=== PATIENT | female | born 1945 | race Caucasian/White ===

== ENCOUNTER 2018-07-16 12:28 | Outpatient (CLI) | payer MEDICARE, SELFPAY ==
[2018-07-18 04:34] LABS: Vitamin D 25 Total 39.6 ng/ml (30-100)
== END 2018-07-16 12:48 ==
PROVIDERS: PCP Family Medicine; Visit Provider Family Medicine
DX: C34.32 Malignant neoplasm of lower lobe, left bronchus or lung (principal); E03.2 Hypothyroidism due to medicaments and other exogenous substances; M81.8 Other osteoporosis without current pathological fracture
CPT/HCPCS: 36415; 82306

== ENCOUNTER 2018-07-22 07:41 | Day surgery (SDC) | payer MEDICARE, OTHER, SELFPAY ==
--- NOTE | 2018-07-21 12:48 | W.PIPPEYE ---
History of Present Illness Chief Complaint: Progressive decreased vision, left eye Narrative: The patient is a 72 year old lady who originally presented with complaints of progressive decreased vision in both eyes at both distance and near, right eye worse than left. She was noted to have significant bilateral nuclear and cortical cataracts, right eye worse than left. The option of cataract surgery was offered to the patient and she wished to proceed. She underwent cataract surgery in the right eye on 07/08/2018. Postoperatively she is doing well in the right eye with 20/20 uncorrected vision. She now presents for cataract surgery in the left eye. NOTE: The Chief Complaint, HPI, Past Medical History, Past Surgical History, Family History, Social History, Medications, and complete Ophthalmic Exam with detailed Assessment and Plan have already been documented in the patient's outpatient ophthalmic record and/or in the Primary Care Provider's pre-op history and physical, and are not covered again in detail here. [facility] Family History Mother Dementia Mental disorder Father Personal history of malignant neoplasm Cerebrovascular accident Parkinson disease Sister Essential hypertension Personal history of malignant neoplasm Brother No problems noted. Grandfather Parkinson disease Grandfather No problems noted. Grandmother Diabetes Grandmother No problems noted. Other Heart disease Medical History Cortical cataract of left eye (Chronic) Nuclear sclerotic cataract of left eye (Chronic) Social History Smoking/Tobacco Use Status: Never Surgical History S/P cataract surgery (Resolved 07/08/18) Dilation and curettage LAMINECTOMY Open Carpal Tunnel release (01/13/15) Rotator Cuff Repair Tonsillectomy and adenoidectomy Meds Home Medications Medication Instructions Recorded Confirmed Type calcium carbonate-vitamin D3 1 ea PO DAILY #90 tab 03/25/13 07/08/18 History [Caltrate with Vitamin D3] ibuprofen 800 mg PO TID pprn #100 tab-cap 03/02/17 07/08/18 Clinic triamcinolone acetonide 1 lane TOPICAL BID PRN #3 ea 08/16/17 07/08/18 Clinic paroxetine HCl 2 tab PO DAILY #60 tab-cap 11/09/17 07/08/18 Clinic alprazolam 1 mg PO DAILY PRN #6 tab-cap 03/01/18 07/08/18 Clinic famotidine 20 mg PO BID #60 tab-cap 03/07/18 07/08/18 Clinic alprazolam 0.5 mg PO QAM #30 tab-cap 06/28/18 07/08/18 Clinic Ca Seu-M2-V-Ccrc-fvlgs-gdh bor 1 ea PO DAILY 07/03/18 07/08/18 History [Prosteon Tablet] Zyflanemd 1 tab PO BID 07/03/18 07/08/18 History ascorbic acid (vitamin C) [Vitamin 500 mg PO DAILY 07/03/18 07/08/18 History C] cholecalciferol (vitamin D3) 2,000 unit PO DAILY 07/03/18 07/08/18 History [Vitamin D3] cod liver oil 1 ea PO DAILY 07/03/18 07/08/18 History wmepiofo-ykess-way9-C-jaci-bor 1 ea PO TID 07/03/18 07/08/18 History [Cddqidr-Zxsbr-KDZ Complex Cplt] milk thistle seed extract 175 mg PO DAILY 07/03/18 07/08/18 History multivitamin 1 ea PO BID 07/03/18 07/08/18 History vitamin B complex 1 ea PO DAILY 07/03/18 07/08/18 History Allergies Allergy/AdvReac Type Severity Reaction Status Date / Time latex Allergy Unknown red & itchy Unverified 07/08/18 08:01 acetaminophen [From Percocet] AdvReac Intermediate Unverified 07/08/18 08:01 morphine AdvReac Intermediate Paranoia Unverified 07/08/18 08:01 oxycodone [From Percocet] AdvReac Intermediate Unverified 07/08/18 08:01 Sulfa (Sulfonamide AdvReac Intermediate NAUSEA AND Unverified 07/03/18 10:16 Antibiotics) VOMITING Exam OCULAR EXAM:: Visual acuity at distance: 20/20 OD, 20/30 OS Pupils: Pupils equal, round, and reactive without afferent pupillary defect IOP: 15 OD 18 OS Extraocular Motility: Normal Pertinent Slit Lamp Findings: Significant for a well-positioned PCIOL OD. 1+ nuclear/cortical cataract, left eye. Pupils dilate to 7 mm OU. Dilated Funduscopic Examination: Disc cupping is 0.35 OD, 0.3 OS. The optic nerves have good perfusion and normal color. The retinal vasculature is normal without significant tortuosity or abnormality. The maculas are normal in appearance with normal contour and foveal reflex appropriate for age. The peripheral retina and vitreous are normal. BRIGHTNESS ACUITY TESTING (BAT):: Off left eye 20/30 Low: 20/50 Medium: 20/60 High: 20/70 Assessment and Plan (1) Nuclear sclerotic cataract of left eye: Current visit: No Status: Chronic Assessment: Visually significant cataract, left eye. Plan: Cataract extraction with intraocular lens implantation, left eye (2) Cortical cataract of left eye: Current visit: No Status: Chronic Assessment: Visually significant cataract, left eye. Plan: Cataract extraction with intraocular lens implantation, left eye Note: NOTE:: The details of the planned surgery, including the risks, indications,limitations,expectations,outcome and possible complications were explained to the patient. The patient understands the complications including, but not limited to: infection, hemorrhage, posterior dislocation of the lens or nuclear fragments which may require the intervention of a vitreoretinal surgeon, possible loss of the eye, or from anesthetic complications. The patient has been made aware of the option of not having surgery, that vision following surgery may not be equal to that prior to surgery, and that the planned surgery may not achieve the intended results. Following this discussion, which the patient appeared to understand, the patient wishes to proceed with cataract surgery with lens implantation of the affected eye to improve and maximize vision.
--- NOTE | 2018-07-21 13:00 | POEE_ITS ---
History of Present Illness Chief Complaint: Progressive decreased vision, left eye Narrative: The patient is a 72 year old lady who originally presented with complaints of progressive decreased vision in both eyes at both distance and near, right eye worse than left. She was noted to have significant bilateral nuclear and cortical cataracts, right eye worse than left. The option of cataract surgery was offered to the patient and she wished to proceed. She underwent cataract surgery in the right eye on 07/08/2018. Postoperatively she is doing well in the right eye with 20/20 uncorrected vision. She now presents for cataract surgery in the left eye. NOTE: The Chief Complaint, HPI, Past Medical History, Past Surgical History, Family History, Social History, Medications, and complete Ophthalmic Exam with detailed Assessment and Plan have already been documented in the patient's outpatient ophthalmic record and/or in the Primary Care Provider's pre-op history and physical, and are not covered again in detail here. [facility] Family History Mother Dementia Mental disorder Father Personal history of malignant neoplasm Cerebrovascular accident Parkinson disease Sister Essential hypertension Personal history of malignant neoplasm Brother No problems noted. Grandfather Parkinson disease Grandfather No problems noted. Grandmother Diabetes Grandmother No problems noted. Other Heart disease Medical History Cortical cataract of left eye (Chronic) Nuclear sclerotic cataract of left eye (Chronic) Social History Smoking/Tobacco Use Status: Never Surgical History S/P cataract surgery (Resolved 07/08/18) Dilation and curettage LAMINECTOMY Open Carpal Tunnel release (01/13/15) Rotator Cuff Repair Tonsillectomy and adenoidectomy Meds Home Medications Medication Instructions Recorded Confirmed Type calcium carbonate-vitamin D3 1 ea PO DAILY #90 tab 03/25/13 07/08/18 History [Caltrate with Vitamin D3] ibuprofen 800 mg PO TID pprn #100 tab-cap 03/02/17 07/08/18 Clinic triamcinolone acetonide 1 lane TOPICAL BID PRN #3 ea 08/16/17 07/08/18 Clinic paroxetine HCl 2 tab PO DAILY #60 tab-cap 11/09/17 07/08/18 Clinic alprazolam 1 mg PO DAILY PRN #6 tab-cap 03/01/18 07/08/18 Clinic famotidine 20 mg PO BID #60 tab-cap 03/07/18 07/08/18 Clinic alprazolam 0.5 mg PO QAM #30 tab-cap 06/28/18 07/08/18 Clinic Ca Bzo-P2-H-Sylr-nygcr-yql bor 1 ea PO DAILY 07/03/18 07/08/18 History [Prosteon Tablet] Zyflanemd 1 tab PO BID 07/03/18 07/08/18 History ascorbic acid (vitamin C) [Vitamin 500 mg PO DAILY 07/03/18 07/08/18 History C] cholecalciferol (vitamin D3) 2,000 unit PO DAILY 07/03/18 07/08/18 History [Vitamin D3] cod liver oil 1 ea PO DAILY 07/03/18 07/08/18 History tushhlju-sedto-cjy1-C-jaci-bor 1 ea PO TID 07/03/18 07/08/18 History [Bjtotsn-Hjwaf-PYW Complex Cplt] milk thistle seed extract 175 mg PO DAILY 07/03/18 07/08/18 History multivitamin 1 ea PO BID 07/03/18 07/08/18 History vitamin B complex 1 ea PO DAILY 07/03/18 07/08/18 History Allergies Allergy/AdvReac Type Severity Reaction Status Date / Time latex Allergy Unknown red & itchy Unverified 07/08/18 08:01 acetaminophen [From Percocet] AdvReac Intermediate Unverified 07/08/18 08:01 morphine AdvReac Intermediate Paranoia Unverified 07/08/18 08:01 oxycodone [From Percocet] AdvReac Intermediate Unverified 07/08/18 08:01 Sulfa (Sulfonamide AdvReac Intermediate NAUSEA AND Unverified 07/03/18 10:16 Antibiotics) VOMITING Exam OCULAR EXAM:: Visual acuity at distance: 20/20 OD, 20/30 OS Pupils: Pupils equal, round, and reactive without afferent pupillary defect IOP: 15 OD 18 OS Extraocular Motility: Normal Pertinent Slit Lamp Findings: Significant for a well-positioned PCIOL OD. 1+ nuclear/cortical cataract, left eye. Pupils dilate to 7 mm OU. Dilated Funduscopic Examination: Disc cupping is 0.35 OD, 0.3 OS. The optic nerves have good perfusion and normal color. The retinal vasculature is normal without significant tortuosity or abnormality. The maculas are normal in appearance with normal contour and foveal reflex appropriate for age. The peripheral retina and vitreous are normal. BRIGHTNESS ACUITY TESTING (BAT):: Off left eye 20/30 Low: 20/50 Medium: 20/60 High: 20/70 Assessment and Plan (1) Nuclear sclerotic cataract of left eye: Current visit: No Status: Chronic Assessment: Visually significant cataract, left eye. Plan: Cataract extraction with intraocular lens implantation, left eye (2) Cortical cataract of left eye: Current visit: No Status: Chronic Assessment: Visually significant cataract, left eye. Plan: Cataract extraction with intraocular lens implantation, left eye Note: NOTE:: The details of the planned surgery, including the risks, indications, limitations,expectations,outcome and possible complications were explained to the patient. The patient understands the complications including, but not limited to: infection, hemorrhage, posterior dislocation of the lens or nuclear fragments which may require the intervention of a vitreoretinal surgeon, possible loss of the eye, or from anesthetic complications. The patient has been made aware of the option of not having surgery, that vision following surgery may not be equal to that prior to surgery, and that the planned surgery may not achieve the intended results. Following this discussion, which the patient appeared to understand, the patient wishes to proceed with cataract surgery with lens implantation of the affected eye to improve and maximize vision.
[2018-07-22 07:49] VITALS: BP 134/85; PULSE 71; RESP 16; TEMP 36.3; O2SAT 98
[2018-07-22] MEDS: Balanced Salt Soln.-PLUS 500 ML BAG (09:57)
[2018-07-22] MEDS: Lidocaine 1% Pres-Free 5 ML VIAL (09:58)
[2018-07-22] MEDS: Lidocaine 2% Jelly 6 ML SYR (09:59)
[2018-07-22] MEDS: Povidone-Iodine Ophth 30 ML BTL (10:16)
--- NOTE | 2018-07-22 10:21 | W.PM.DSUDISC ---
Discharge Plan Discharge Details Attending Provider: Julián Schmitt Primary Care Provider: Flavio Oswald. Home Meds and New Rx's Prescriptions: No Action calcium carbonate-vitamin D3 [Caltrate with Vitamin D3] 1 EACH tablet 1 ea PO DAILY Qty: 90 RF: 4 ibuprofen 800 MG tablet 800 mg PO TID pprn Qty: 100 RF: 4 triamcinolone acetonide [address] Topical BID PRNQty: 3 RF: 4 paroxetine HCl 40 MG tablet 2 tab PO DAILY Qty: 60 RF: 11 alprazolam 1 MG tablet 1 mg PO DAILY PRNQty: 6 RF: 0 famotidine 20 MG tablet 20 mg PO BID Qty: 60 RF: 11 alprazolam 0.5 MG tablet extended release 24 hr 0.5 mg PO QAM Qty: 30 RF: 5 cod liver oil 1 EACH capsule 1 ea PO DAILY RF: 0 ascorbic acid (vitamin C) [Vitamin C] 500 MG tablet 500 mg PO DAILY RF: 0 multivitamin 1 EACH capsule 1 ea PO BID RF: 0 vitamin B complex 1 EACH capsule 1 ea PO DAILY RF: 0 cholecalciferol (vitamin D3) [Vitamin D3] 2,000 UNIT capsule 2,000 unit PO DAILY RF: 0 mrstdpnb-yjajv-uif7-C-jaci-bor [Ckgbnbmtjkg-Ekzxh-ZXQ Complex] 1 EACH tablet 1 ea PO TID RF: 0 Ca Jze-G3-M-Qgkn-vfumk-qey bor [Prosteon] 1 EACH tablet 1 ea PO DAILY RF: 0 milk thistle seed extract 175 MG capsule 175 mg PO DAILY RF: 0 Zyflanemd 1 tab PO BID RF: 0 Discharge Instructions Stand Alone Forms: Post-op Topical Cataract, Yordy Kumariey (DSU) DS: Diagnosis Discharge Diagnosis (1) Nuclear sclerotic cataract of left eye: Status: Resolved (2) Cortical cataract of left eye: Status: Resolved
--- NOTE | 2018-07-22 10:22 | ROE_ITS ---
Date of service: 07/22/18 Time of Service: 10:21 Operative Note Date of procedure: 07/22/18 Pre-op diagnosis: Cataract, left eye Post-op diagnosis: same Procedure: Cataract extraction using phacoemulsification with intraocular lens implant, left eye Surgeon: Julián Schmitt Anesthesia: MAC and local (sub-tenon's anesthetic infiltration) Pathology: none sent Complications: None Patient was transported to: same day Patient's condition: stable Implants: [employer] / [employer] Tecnis [id number] Indications: Painless progressive vision loss due to cataract, left eye Procedure Description: CATARACT SURGERY OPERATIVE REPORT PREOPERATIVE DIAGNOSIS: Nuclear/cortical cataract, left eye, symptomatic POSTOPERATIVE DIAGNOSIS: Same OPERATION: Cataract extraction using phacoemulsification with posterior chamber intraocular lens implant, left eye. IOL: IOL Senior Lead Developer/Model: [employer] & Chuck[employer] / GHASSAN Tecnis [id number] IOL Power: +23.50 diopters IOL Serial Number: [id number] Optic Diameter: 6.0 mm Haptic/Overall Diameter: 13.0 mm PHACO INFO: [employer] Vision System with OZil and Active [employer]uidics Cumulative Dispersed Energy (CDE): 10.62 seconds SURGEON: Julián Schmitt MD, VALERI ANESTHESIA: Monitored Anesthesia Care (MAC), with local sub-tenon's anesthetic infiltration COMPLICATIONS: None SPECIMENS: None INDICATIONS FOR PROCEDURE: The patient is a 72-year-old lady with history of symptomatic bilateral nuclear and cortical cataracts, right eye worse than left. She is Ardie undergone cataract surgery in her right eye and is doing well postoperatively with uncorrected vision of 20/20. She now presents for cataract surgery in the left eye. PROCEDURE: The correct surgical eye was identified and marked as the left eye and the pupil was dilated in the preoperative area using mydriatics, cycloplegics, and NSAIDS (except in aspirin allergic patients). The dilated pupil size was 7.0 mm. Oral sedation was administered in the form of an Imprimis MKO Melt (midazolam 3mg/ketamine 25mg/ondansetron 2mg). The patient was brought to the operating room where cardiopulmonary monitoring was instituted and surgical time-out was performed, confirming the correct operative eye and IOL power. Topical anesthesia was administered and ophthalmic povidone-iodine 5% was instilled into the conjunctival fornices. Lidocaine gel was applied to the cornea and the domenica-ocular area was prepped with Betadine 10% solution and draped in the usual sterile fashion for intraocular surgery. Steri-strips were used to cover the lashes and lid margins and an adhesive eye drape was placed. Care was taken to isolate the lashes and lid margins under the Steri-strips and adhesive eye drape. A lid speculum was placed between the lids of the operative eye and the Opal-Stoney operating microscope was maneuvered into position. Jim scissors were then used to make a conjunctival buttonhole approximately 6mm posterior to the limbus in the inferonasal quadrant. Blunt dissection was carried out to expose bare sclera, and a blunt-tipped sub-tenon? s anesthesia cannula was introduced and passed posteriorly along the globe where non-preserved plain lidocaine was injected into posterior sub-Tenon?s space. A sideport knife was used to make a paracentesis port at the 12:00 postion and the anterior chamber was filled with Healon GV. A 2.4mm keratome knife was used to create a half-thickness groove at the limbus and then to construct a three-plane near-clear corneal tunnel extending 2.0mm into clear cornea at the 3:00 position. A flap was raised on the anterior capsule and capsulorhexis forceps were used to complete a continuous curvilinear capsulorhexis of 5.0mm, slightly irregular superiorly. Balanced salt solution was then used to perform cortical cleaving hydrodissection and nuclear hydrodelineation until the lens could be freely rotated within the capsular bag. The lens nucleus was then disassembled and removed within the capsular bag and iris plane using phacoemulsification. Residual cortical material was removed using the 45-degree angled silicone I/A tip with 0.3mm port. The posterior capsule was carefully polished to remove as much residual lens epithelial cells as safely possible. The capsular bag was then inflated and the anterior chamber deepened with viscoelastic. The lens implant described above was inserted into the capsular bag using the GHASSAN [place] Injector. A Kuglen hook was used to dial the IOL into position. Residual viscoelastic was then removed first from posterior to the IOL, then from the anterior chamber using the I/A handpiece. The lens implant was noted to center nicely within the capsular bag. The incisions were stromally hydrated , and the anterior chamber was reformed using BSS. Then 0.4cc of moxifloxacin 1.5mg/ml were injected into the capsular bag and anterior chamber. The incisions were checked with a Weck spear and found to be secure. Several drops of ophthalmic povidone-iodine 5% were then applied to the eye followed by two drops of Imprimis combination moxifloxacin/dexamethasone solution. The drapes were removed and a clear plastic protective eye shield was placed over the eye. The patient was then returned to [facility] Surgery in stable condition.
[2018-07-22 10:45] VITALS: BP 132/76; PULSE 68; RESP 16; TEMP 36.8; O2SAT 95
== END 2018-07-22 10:50 | disposition home or self-care (01) ==
LOC: SUR 07:43
PROVIDERS: PCP Family Medicine; Visit Provider Ophthalmology
PROC: (CPT 66984; principal; 2018-07-22 10:30)
DX: H25.12 Age-related nuclear cataract, left eye (principal); H25.012 Cortical age-related cataract, left eye; I10 Essential (primary) hypertension
CPT/HCPCS: 66984; V2632

== ENCOUNTER 2019-02-24 18:05 | Outpatient (REF) | payer MEDICARE, SELFPAY ==
--- NOTE | 2019-02-24 15:50 | SKI_PTH ---
PATIENT: Suma Heck LOC: [facility] U#:[id number] AGE/SX: 73/F ROOM: RE02/24/[address]: Hira Finley DO : 1945 BED: DIS: 02/24/2019 SPEC #: [id number] RECD: 02/24/19 18:09 STATUS: JACK RETorin #: [id number] HARJINDER: 02/24/19 15:[address]: Hira Finley DEPT: Surgical Specimen RECD BY: Lynda Bansal ENTERED: 02/24/19 18:10 SP TYPE: JACIEL SORIANO DR: Flavio Oswald MD Tissues: 1 - SKIN BIOPSY(SHAVE/PUNCH) 2 - SKIN BIOPSY(SHAVE/PUNCH) Procedures: SKIN LEVEL 4 Comments: [id number]
== END 2019-02-24 18:25 ==
LOC: LBN 18:05
PROVIDERS: PCP Family Medicine; Visit Provider Otolaryngology Otolaryngology/Facial Plastic Surgery
DX: L81.4 Other melanin hyperpigmentation (principal); L82.1 Other seborrheic keratosis
CPT/HCPCS: 88305

== ENCOUNTER 2019-04-21 13:38 | Outpatient (CLI) | payer MEDICARE, OTHER, SELFPAY ==
--- NOTE | 2019-04-21 13:35 | DI.RAD_ITS ---
SYMPTOM/DIAGNOSIS: RT HIP PAIN RIGHT HIP: Two views. Comparison 03/18/14. The right hip is well maintained. No bone or joint abnormality is identified. Dystrophic stable calcifications are seen in the soft tissues adjacent to the lesser trochanter. The soft tissues are otherwise unremarkable. IMPRESSION: No acute abnormality.
== END 2019-04-21 13:58 ==
PROVIDERS: PCP Family Medicine; Referring Provider Family Medicine; Visit Provider Student in an Organized Health Care Education/Training Program
DX: M25.551 Pain in right hip (principal); M70.61 Trochanteric bursitis, right hip; I10 Essential (primary) hypertension
CPT/HCPCS: 20610; 99204; 99213; 73502; J1040

== ENCOUNTER 2019-06-21 10:38 | Outpatient (CLI) | payer MEDICARE, SELFPAY ==
[2019-06-21 12:07] LABS: Anion Gap 8.9 mmol/L (3-11); BUN 16 mg/dL (7-18); CO2 29.1 mmol/L (21.0-32.0); CREATININE 0.64 mg/dL (0.55-1.02); Calculated LDL 119 mg/dL; Chloride 102 mmol/L (98-107); Cholesterol 223 mg/dL (50-200); Glucose 95 mg/dL (70-100); HDL Cholesterol 99 mg/dL (40-60); Potassium 4.3 mmol/L (3.5-5.1); Sodium 140 mmol/L (136-145); TSH (W/Ref FT4) 1.96 uIU/mL (0.36-3.74); Triglyceride 27 mg/dL (30-150)
[2019-06-21 12:36] LABS: Calcium 9.1 mg/dL (8.5-10.1)
== END 2019-06-21 10:58 ==
PROVIDERS: PCP Family Medicine; Visit Provider Family Medicine
DX: I10 Essential (primary) hypertension (principal); E03.9 Hypothyroidism, unspecified
CPT/HCPCS: 36415; 80048; 80061; 83721; 84443

== ENCOUNTER → 2019-07-09 10:05 | Outpatient (BNVA) | payer MEDICARE, SELFPAY | PROVIDERS: PCP Family Medicine; Referring Provider Family Medicine; Visit Provider Psychiatry & Neurology Neurology | DX: G62.9 Polyneuropathy, unspecified (principal); I10 Essential (primary) hypertension | CPT/HCPCS: 99205; 99215 ==

== ENCOUNTER 2019-07-09 11:20 | Outpatient (CLI) | payer MEDICARE, SELFPAY ==
[2019-07-09 12:42] LABS: HGB 13.9 g/dL (12.0-15.5); Mean Corp. HGB Concentration 33.9 g/dL (32.0-36.0); Mean Corpuscular Hemoglobin 30.7 pg (27.0-33.0); Mean Corpuscular Volume 90.5 fL (80-95); Platelet Count 226 x1000/uL (130-400); RBC 4.53 m/cumm (4.00-5.20); White Blood Cell Count 5.08 k/cumm (4.4-10.8)
[2019-07-09 13:02] LABS: Hemoglobin A1C 5.7 % (4.5-6.2)
[2019-07-09 13:37] LABS: Folate 17.4 ng/mL (8.6-20.0); Vitamin B12 871 pg/mL (193-986)
[2019-07-10 13:34] LABS: Albumin 64.5 % (55.8-66.1); Total Protein 7.5 g/dl (6.3-8.2)
== END 2019-07-09 11:40 ==
PROVIDERS: PCP Family Medicine; Visit Provider Psychiatry & Neurology Neurology
DX: G62.9 Polyneuropathy, unspecified (principal); Z79.899 Other long term (current) drug therapy
CPT/HCPCS: 36415; 85027; 99215; 82607; 82746; 83036; 84165

== ENCOUNTER 2020-09-06 10:07 | Outpatient (CLI) | payer MEDICARE, SELFPAY ==
--- NOTE | 2020-09-06 15:30 | DI.RAD_ITS ---
EXAM: XR KNEE RT 4V AP,LAT,MATIAS,PAT CLINICAL HISTORY: fall, knee pain m25.569 pain in rt knee TECHNIQUE: COMPARISON: No exams were available for comparison FINDINGS: Four views were obtained. There is a probable knee joint effusion. There is slight deformity of the lateral tibial plateau, this may be on a degenerative basis, however the possibility of an occult no ndisplaced tibial plateau fracture would have to be raised. Additional evaluation with CT of the kne e is suggested. IMPRESSION: RADIATION DOSE DELIVERED: Total DLP
== END 2020-09-06 10:27 ==
PROVIDERS: PCP Family Medicine; Visit Provider Physician Assistant
DX: M25.561 Pain in right knee (principal)
CPT/HCPCS: 73564

== ENCOUNTER 2020-09-08 09:15 | Outpatient (CLI) | payer MEDICARE, SELFPAY ==
--- NOTE | 2020-09-08 13:45 | DI.CT_ITS ---
EXAM: CT LOWER EXTREMITY RT WO CLINICAL HISTORY: r/o tibial plateau fracture; recent xray ? fx. M25.569 PAIN IN KNEE TECHNIQUE: COMPARISON: CR XR KNEE RT 4V AP,LAT,MATIAS,PAT from 09/06/2020 FINDINGS: CT examination of the knee was performed to evaluate questionable findings involving lateral tibial p lateau on recent radiographs. There is a moderate knee joint effusion. There is a mildly displaced fracture of the posterior lateral aspect of the lateral tibial plateau, t he area involved measures about 14 x 24 millimeters in diameter with 2-3 millimeter depression of gloria n fracture fragment. There is slight comminution. This is a mildly impacted fracture. No additiona l fracture identified. IMPRESSION: Mildly depressed lateral tibial plateau fracture posteriorly as described above. RADIATION DOSE DELIVERED: 298.32mGy.cm Total DLP
== END 2020-09-08 09:35 ==
PROVIDERS: PCP Family Medicine; Visit Provider Physician Assistant
DX: S82.141A Displaced bicondylar fracture of right tibia, initial encounter for closed fracture (principal); S82.121A Displaced fracture of lateral condyle of right tibia, initial encounter for closed fracture; W51.XXXA Accidental striking against or bumped into by another person, initial encounter; I10 Essential (primary) hypertension
CPT/HCPCS: 99214; 73700

== ENCOUNTER 2020-09-23 15:06 | Outpatient (CLI) | payer MEDICARE, SELFPAY ==
--- NOTE | 2020-09-23 14:30 | DI.RAD_ITS ---
EXAM: XR KNEE RT 2V AP,LAT CLINICAL HISTORY: f/u R tibial plateau frx. TECHNIQUE: 2D digital imaging was performed. COMPARISON: CR XR KNEE RT 4V AP,LAT,MATIAS,PAT from 09/06/2020 FINDINGS: BONES: There is a persistent deformity involving the lateral tibial plateau suspicious for depressed tibial plateau fracture. No bony destructive lesion is seen. JOINTS: The knee is normally aligned. No joint effusion is seen. SOFT TISSUE: Normal. IMPRESSION: Findings are again seen suspicious for mildly depressed lateral tibial plateau fracture. DATA REPOSITORY: RADIATION DOSE DELIVERED:
== END 2020-09-23 15:26 ==
PROVIDERS: PCP Family Medicine; Referring Provider Family Medicine; Visit Provider Student in an Organized Health Care Education/Training Program
DX: S82.141A Displaced bicondylar fracture of right tibia, initial encounter for closed fracture (principal); S82.121D Displaced fracture of lateral condyle of right tibia, subsequent encounter for closed fracture with routine healing; X58.XXXD Exposure to other specified factors, subsequent encounter; I10 Essential (primary) hypertension
CPT/HCPCS: 99213; 73560

== ENCOUNTER 2020-10-21 08:45 | Outpatient (REF) | payer MEDICARE, SELFPAY ==
[2020-10-22 11:15] LABS: Campylobacter PCR Negative (Negative); Salmonella PCR Negative (Negative); Shiga Toxin PCR Negative (Negative); Shigella/Enteroinvasive Ecoli Negative (Negative)
== END 2020-10-21 09:05 ==
LOC: LBN 08:45
PROVIDERS: PCP Family Medicine; Visit Provider Family Medicine
DX: R19.7 Diarrhea, unspecified (principal)
CPT/HCPCS: 87493; 87505

== ENCOUNTER → 2020-10-21 10:12 | Outpatient (BNVA) | payer MEDICARE, SELFPAY | PROVIDERS: PCP Family Medicine; Referring Provider Family Medicine; Visit Provider Physician Assistant | DX: S82.121D Displaced fracture of lateral condyle of right tibia, subsequent encounter for closed fracture with routine healing; X58.XXXD Exposure to other specified factors, subsequent encounter | CPT/HCPCS: 99213 ==

== ENCOUNTER 2020-10-21 11:08 | Outpatient (CLI) | payer MEDICARE, SELFPAY ==
--- NOTE | 2020-10-21 10:40 | DI.RAD_ITS ---
EXAM: XR KNEE RT 2V AP,LAT CLINICAL HISTORY: R tib plateau fracture TECHNIQUE: COMPARISON: CR XR KNEE RT 2V AP,LAT from 09/23/2020 FINDINGS: Two views were obtained. Previously described lateral tibial plateau fracture is again the, no gross interval change in alignment of the fracture fragments comparison with examination of September 23. IMPRESSION: RADIATION DOSE DELIVERED: Total DLP
== END 2020-10-21 11:28 ==
PROVIDERS: PCP Family Medicine; Referring Provider Family Medicine; Visit Provider Physician Assistant
DX: S82.141A Displaced bicondylar fracture of right tibia, initial encounter for closed fracture (principal)
CPT/HCPCS: 99213; 73560

== ENCOUNTER 2020-10-29 03:45 | Outpatient (CLI) | payer MEDICARE, SELFPAY ==
[2020-10-29 14:37] LABS: Abs Immature Grans 0.01 10^3/uL (0.0-0.06); Absolute Basophil Count 0.05 10^3/uL (0.0-0.2); Absolute Eosinophil Count 0.32 10^3/uL (0.0-0.7); Absolute Lymphocyte Count 1.52 10^3/uL (1.2-3.4); Absolute Monocyte Count 0.47 10^3/uL (0.1-0.8); Absolute Neutrophil Count 3.29 10^3/uL (1.2-6.7); Basophils % 0.9; Eosinophils % 5.7; HCT 40.4 % (36.0-46.0); HGB 13.2 g/dL (11.2-15.7); Immature Grans % 0.2; Lymphocytes % 26.9; MCH 28.9 pg (27.0-33.0); MCHC 32.7 % (32.0-36.0); MCV 88.4 fL (80-95); MPV 10.5 fL (8.0-11.0); Monocytes % 8.3; Nucleated RBC 0 %; Platelet Count 218 10^3/uL (130-400); RBC 4.57 10^6/uL (3.93-5.22); RDW-SD 45.1 fL; WBC 5.66 10^3/uL (4.4-10.8)
[2020-10-29 15:47] LABS: ALT 30 U/L (14-59); AST 21 U/L (15-37); Albumin 3.9 g/dL (3.4-5.0); Alkaline Phosphatase 104 U/L (46-116); Anion Gap 8.7 mmol/L (3-11); BUN 16 mg/dL (7-18); Bilirubin, Total 0.5 mg/dL (0.2-1.0); CO2 27.3 mmol/L (21.0-32.0); CREATININE 0.64 mg/dL (0.55-1.02); Calcium 8.8 mg/dL (8.5-10.1); Chloride 103 mmol/L (98-107); GGT 43 U/L (5-55); Glucose 114 mg/dL (74-106); Potassium 3.9 mmol/L (3.5-5.1); Sodium 139 mmol/L (136-145); Total Protein 7.3 g/dL (6.4-8.2)
== END 2020-10-29 04:05 ==
PROVIDERS: PCP Family Medicine; Visit Provider Family Medicine
DX: R10.9 Unspecified abdominal pain (principal)
CPT/HCPCS: 36415; 80053; 82977; 85025

== ENCOUNTER 2020-11-22 01:17 | Outpatient (CLI) | payer MEDICARE, SELFPAY ==
--- NOTE | 2020-11-22 08:00 | DI.MAMMO_ITS ---
EXAM: MG MAMMO SCREENING CLINICAL HISTORY: screening,Z12.39. TECHNIQUE: Bilateral full field digital CC and MLO mammographic images were obtained with 3D tomosyn thesis and utilizing computer aided detection (CAD). COMPARISON: Prior mammograms dating back to 2010, the most recent being August 2019. FINDINGS: The fibroglandular tissue pattern is again noted to be dense. This decreases the sensitivity of the mammogram for finding in underlying lesions, even using 3D technique. There are no new obvious spiculated masses. Benign-appearing microcalcifications are again noted in both breasts. There are no new malignant-appearing microcalcification groups. There is no significa nt architectural distortion nor skin thickening-retraction. IMPRESSION: Dense bilateral fibroglandular tissue. No obvious radiographic evidence of malignancy. BI-RADS Category 1 - Negative Breast Density - Category C - Heterogeneously dense Breast density Category C or D implies that the patient has dense breast tissue. Dense breast tissue can make it harder to find cancer on a mammogram. Dense breast tissue is also associated with an incr eased risk of breast cancer. This information about the result of the mammogram report was provided to the patient to raise their awareness. Use this report when you speak with the patient about their risks for breast cancer, which includes their family history. At that time, you may recommend additional screening tests (Ultrasoun d or MRI) as these tests may add significant information. A negative radiographic report should not delay biopsy if a dominant or clinically suspicious mass is present. Up to ten percent of cancers are not identified on mammography. A negative report may reinforce clinical impression. Adenosis and dense breasts may obscure an underlying neoplasm. False positive reports average 6 to 10%. Patient will receive a letter notifying them of these results.
== END 2020-11-22 01:37 ==
PROVIDERS: PCP Family Medicine; Visit Provider Family Medicine
DX: Z12.31 Encounter for screening mammogram for malignant neoplasm of breast (principal); R92.0 Mammographic microcalcification found on diagnostic imaging of breast
CPT/HCPCS: 77063; 77067

== ENCOUNTER 2021-01-20 15:35 | Outpatient (CLI) | payer MEDICARE, SELFPAY ==
--- NOTE | 2021-01-20 14:00 | DI.RAD_ITS ---
EXAM: XR SHOULDER LT COMPLETE 2+V CLINICAL HISTORY: LEFT SHOULDER PAIN. TECHNIQUE: 2D digital imaging was performed. COMPARISON: No exams were available for comparison FINDINGS: Mild degenerative changes are seen at the glenohumeral and acromioclavicular joints. The bones are i ntact. No dislocation is seen. The bones appear osteopenic. The soft tissues are unremarkable. IMPRESSION: Mild degenerative changes of the shoulder. DATA REPOSITORY: RADIATION DOSE DELIVERED:
--- NOTE | 2021-01-20 14:45 | DI.RAD_ITS ---
EXAM: XR WRIST LT COMPLETE CLINICAL HISTORY: LEFT WRIST PAIN. TECHNIQUE: 2D digital imaging was performed. COMPARISON: No exams were available for comparison FINDINGS: BONES: No acute fracture is present. No bony destructive lesion is seen. JOINTS: The carpal bones are normally aligned. Hypertrophic changes in joint space narrowing is seen at the 1st CMC joint. SOFT TISSUE: Normal. IMPRESSION: Moderate degenerative changes of the 1st CMC joint. DATA REPOSITORY: RADIATION DOSE DELIVERED:
== END 2021-01-20 15:36 | disposition home or self-care (01) ==
LOC: DIORS 15:35
PROVIDERS: PCP Family Medicine; Referring Provider Family Medicine; Visit Provider Student in an Organized Health Care Education/Training Program
DX: M18.12 Unilateral primary osteoarthritis of first carpometacarpal joint, left hand (principal); M19.012 Primary osteoarthritis, left shoulder; M25.512 Pain in left shoulder; M25.532 Pain in left wrist; G89.29 Other chronic pain
CPT/HCPCS: 99213; 73030; 73110

== ENCOUNTER 2021-02-01 01:58 | Outpatient (CLI) | payer MEDICARE, SELFPAY ==
--- NOTE | 2021-02-01 07:15 | DI.MRI_ITS ---
EXAM: MR UPPER JOINT LT WO CLINICAL HISTORY: L SHOULDER PAIN,M25.512. TECHNIQUE: Multiplanar multisequence MRI was performed. COMPARISON: No exams were available for comparison FINDINGS: BONES: There is no fracture or contusion pattern. Degenerative signal changes are seen in the greater tuberosity with subchondral skull edema and cysts present. JOINTS: The acromioclavicular joint is normal. Mild degenerative changes are seen at the acromioclavi cular joint with subchondral edema and cysts. There is mild superior subluxation of the humeral head . There is a joint effusion. TENDONS: Supraspinatus: There is a full-thickness tear of the supraspinatus tendon at its insertion site with a gap of 6 mm. Infraspinatus: There is tendinosis of the infraspinatus tendon without jasvir tear. Subscapularis: There is tendinosis of the subscapularis tendon. No evidence of a full-thickness tear . Teres Minor: Unremarkable. Biceps and Delta: There is tendinosis of the biceps tendon. MUSCLES: Unremarkable. GLENOID LABRUM: Unremarkable on this noncontrast examination. SOFT TISSUES: Unremarkable. LIGAMENTS: Unremarkable. OTHER: There is fluid seen in the subacromial subdeltoid bursa. IMPRESSION: 1. Full-thickness tear of the supraspinatus tendon at its insertion site with a 6 mm gap. 2. Tendinosis involving the biceps, subscapularis and infraspinatus tendons. 3. Degenerative changes seen at the greater tuberosity and the glenohumeral joint. DATA REPOSITORY:
== END 2021-02-01 02:18 ==
PROVIDERS: PCP Family Medicine; Visit Provider Student in an Organized Health Care Education/Training Program
DX: M75.122 Complete rotator cuff tear or rupture of left shoulder, not specified as traumatic (principal); M19.012 Primary osteoarthritis, left shoulder; M75.22 Bicipital tendinitis, left shoulder
CPT/HCPCS: 73221

== ENCOUNTER → 2021-02-21 14:33 | Outpatient (BNVA) | payer MEDICARE, SELFPAY | PROVIDERS: PCP Family Medicine; Referring Provider Family Medicine; Visit Provider Student in an Organized Health Care Education/Training Program | DX: M75.102 Unspecified rotator cuff tear or rupture of left shoulder, not specified as traumatic (principal); M18.12 Unilateral primary osteoarthritis of first carpometacarpal joint, left hand | CPT/HCPCS: 20600; 99213; J1030 ==

== ENCOUNTER 2021-08-11 03:50 | Outpatient (CLI) | payer MEDICARE, SELFPAY ==
[2021-08-11 12:36] LABS: HCT 36.9 % (36.0-46.0); MCH 27.5 pg (27.0-33.0); MCHC 32.5 % (32.0-36.0); MCV 84.6 fL (80-95); MPV 10.6 fL (8.0-11.0); Platelet Count 242 10^3/uL (130-400); RBC 4.36 10^6/uL (3.93-5.22); RDW-SD 43.9 fL; WBC 6.41 10^3/uL (4.4-10.8)
[2021-08-11 13:38] LABS: Hemoglobin A1C 5.8 % (<5.7)
[2021-08-11 13:47] LABS: Calculated LDL 122 mg/dL (<100); Cholesterol 247 mg/dL (<200); HDL Cholesterol 113 mg/dL (40-60); TSH (W/Ref FT4) 2.08 uIU/mL (0.36-3.74); Triglyceride 62 mg/dL (<150)
== END 2021-08-11 03:51 | disposition home or self-care (01) ==
LOC: LOS 03:51
PROVIDERS: PCP Family Medicine; Visit Provider Family Medicine
DX: E78.5 Hyperlipidemia, unspecified; R53.83 Other fatigue; R73.9 Hyperglycemia, unspecified
CPT/HCPCS: 36415; 80061; 85027; 83036; 84443

== ENCOUNTER 2022-03-10 00:46 | Outpatient (CLI) | payer MEDICARE, SELFPAY ==
--- NOTE | 2022-03-10 07:17 | DI.MAMMO_ITS ---
Exam(s) MAMMO SCREENING EXAM: MAMMO SCREENING CLINICAL HISTORY: screening Z12.39 FOR BREAST CANCER TECHNIQUE: Mammograms were interpreted according to the usual protocol including computer analysis w [employer] CAD system, tomosynthesis and C-view imaging. COMPARISON: 2011 through 2020 FINDINGS: The breasts are composed of heterogeneously dense fibroglandular densities, Breast Density category C . No suspicious masses or suspicious microcalcifications are seen. No skin thickening or abnormal axillary lymph nodes are seen. There has been no significant change from prior exams. IMPRESSION: BI-RADS Category 1, Negative mammogram. Yearly screening mammography is recommended. Breast Density Category C, heterogeneously Dense. The mammogram demonstrates the patient's breast tissue is dense. Dense breast tissue is very common a nd is not abnormal but dense breast tissue can make it harder to find cancer on a mammogram. Also, de nse breast tissue may increase breast cancer risk. This information about the result of the mammogram report was provided to the patient to raise their awareness. Use this report when you speak with the patient about their risks for breast cancer, which includes their family history. At that time, you may recommend additional screening tests (Ultrasound or MRI) as they might be useful based on their r isk. A negative radiographic report should not delay biopsy if a dominant or clinically suspicious mass is present. Up to ten percent of cancers are not identified on mammography. A negative report may reinforce clinical impression. Adenosis and dense breasts may obscure an underlying neoplasm. False positive reports average 6 to 10%.
== END 2022-03-10 01:06 ==
PROVIDERS: PCP Nurse Practitioner; Visit Provider Family Medicine
DX: Z12.31 Encounter for screening mammogram for malignant neoplasm of breast (principal)
CPT/HCPCS: 77063; 77067

== ENCOUNTER → 2022-06-16 00:17 | Outpatient (CLI) | payer MEDICARE, SELFPAY ==
--- NOTE | 2022-06-16 07:45 | DI.US_ITS ---
Exam(s) US ABDOMEN EXAM: US ABDOMEN CLINICAL HISTORY: enlarged liver,R16.0 TECHNIQUE: Ultrasound abdomen performed using standard protocol. COMPARISON: No previous for comparison. FINDINGS: ABDOMINAL AORTA AND IVC: Visualized portions normal caliber. PANCREAS: Normal where visualized. LIVER: Normal. Hepatopedal flow in the Portal Vein. The liver measures 12 cm long. There is a 0.5 x 0.6 x 0.6 cm simple cyst in the right lobe of the liver. No follow-up is recommended. GALLBLADDER:No evidence of cholelithiasis. No evidence of wall thickening. No pericholecystic fluid i dentified. BILIARY SYSTEM: Common bile duct measures < 7 mm. No intrahepatic biliary ductal dilation. GEIGER'S SIGN: Negative. KIDNEYS: Kidneys are symmetric in size. No evidence of renal calculi. No evidence of hydronephrosis. No renal mass or cyst identified. SPLEEN: Not enlarged. ASCITES: None seen. IMPRESSION: Unremarkable abdominal ultrasound. DATA REPOSITORY:
== END ==
PROVIDERS: PCP Nurse Practitioner; Visit Provider Nurse Practitioner
DX: R16.0 Hepatomegaly, not elsewhere classified (principal)
CPT/HCPCS: 76700

== ENCOUNTER → 2022-07-21 00:28 | Outpatient (CLI) | payer MEDICARE, SELFPAY ==
--- NOTE | 2022-07-21 07:45 | DI.DEXA_ITS ---
Exam(s) XR DEXA BONE DENSITY W/WO TRENT EXAM: XR DEXA BONE DENSITY W/WO TRENT CLINICAL HISTORY: osteoporosis, m81.0 TECHNIQUE: COMPARISON: No exams were available for comparison FINDINGS: Lateral Spine Image: Unremarkable. No compression deformities identified. Left hip: Total T-Score: -1.7 Total Z-Score: 0.0 T- and Z-scores: Findings overall are consistent with osteopenia. However, there is osteoporosis in the femoral neck with a T-score of -2.5. Lumbar Spine: Total T-Score: -1.5 Total Z-Score: 0.9 T- and Z-scores: Findings consistent with osteopenia. IMPRESSION: Findings of osteoporosis in the femoral neck.
== END ==
PROVIDERS: PCP Nurse Practitioner; Visit Provider Nurse Practitioner
DX: M81.0 Age-related osteoporosis without current pathological fracture (principal); Z13.820 Encounter for screening for osteoporosis
CPT/HCPCS: 77080

== ENCOUNTER → 2022-08-07 09:10 | Outpatient (CLI) | payer MEDICARE, SELFPAY ==
--- NOTE | 2022-08-07 12:30 | DI.RAD_ITS ---
Exam(s) XR HIP RT COMPLETE AP PELVIS EXAM: XR HIP RT COMPLETE AP PELVIS INDICATION: Pain in RT hip-M25.551, MULTIPLE FALLS. COMPARISON: CR XR hip RT complete AP pelvis from 04/21/2019 CR XR DEXA BONE DENSITY W/WO TRENT from 07/21/2022 TECHNIQUE: 2D digital imaging was performed. Three views. FINDINGS: The hip joint spaces are well maintained. There is minimal acetabular spurring. There are mild enth esophytes seen at the iliac wings and greater trochanters. There is a stable calcification adjacent to the right ischial tuberosity IMPRESSION: No acute abnormality. DATA REPOSITORY: RADIATION DOSE DELIVERED:
== END ==
PROVIDERS: PCP Family Medicine; Visit Provider Physician Assistant
DX: M25.551 Pain in right hip (principal)
CPT/HCPCS: 73502

== ENCOUNTER → 2022-10-02 13:54 | Outpatient (BNVA) | payer MEDICARE, SELFPAY | PROVIDERS: PCP Family Medicine; Referring Provider Family Medicine; Visit Provider Student in an Organized Health Care Education/Training Program | DX: M70.61 Trochanteric bursitis, right hip (principal) | CPT/HCPCS: 20610; J1040 ==

== ENCOUNTER 2023-01-19 15:12 | Outpatient (REF) | payer MEDICARE, SELFPAY ==
[2023-01-19 21:44] LABS: Bilirubin Negative (Negative); Blood Negative (Negative); Clarity Clear (Clear); Glucose Negative (Negative); Ketones Negative (Negative); Leukocyte Esterase Negative (Negative); Nitrite Negative (Negative); Urobilinogen 0.2 mg/dL (Up to 0.2)
== END 2023-01-19 15:13 | disposition home or self-care (01) ==
LOC: LBN 15:12
PROVIDERS: PCP Family Medicine; Visit Provider Family Medicine
DX: N39.46 Mixed incontinence (principal); R30.0 Dysuria
CPT/HCPCS: 81003

== ENCOUNTER 2023-04-24 02:05 | Outpatient (CLI) | payer MEDICARE, SELFPAY ==
[2023-04-24 14:20] LABS: Abs Immature Grans 0.01 10^3/uL (0.0-0.06); Absolute Basophil Count 0.06 10^3/uL (0.0-0.2); Absolute Eosinophil Count 0.27 10^3/uL (0.0-0.7); Absolute Lymphocyte Count 1.74 10^3/uL (1.2-3.4); Absolute Monocyte Count 0.54 10^3/uL (0.1-0.8); Absolute Neutrophil Count 3.41 10^3/uL (1.2-6.7); Eosinophils % 4.5; HCT 40.4 % (36.0-46.0); HGB 13.3 g/dL (11.2-15.7); Immature Grans % 0.2; Lymphocytes % 28.9; MCH 29.4 pg (27.0-33.0); MCHC 32.9 % (32.0-36.0); MCV 89 fL (80-95); MPV 10.7 fL (8.0-11.0); Neutrophils % 56.4; Platelet Count 186 10^3/uL (130-400); RBC 4.53 10^6/uL (3.93-5.22); RDW 14.2 % (11.7-14.6); WBC 6.03 10^3/uL (4.4-10.8)
[2023-04-24 15:10] LABS: ALT 44 U/L (14-59); AST 28 U/L (15-37); Albumin 3.8 g/dL (3.4-5.0); Alkaline Phosphatase 105 U/L (46-116); Anion Gap 6.8 mmol/L (3-11); BUN 26 mg/dL (7-18); Bilirubin, Total 0.4 mg/dL (0.2-1.0); CO2 28.2 mmol/L (21.0-32.0); CREATININE 0.6 mg/dL (0.55-1.02); Calcium 9.1 mg/dL (8.5-10.1); Chloride 103 mmol/L (98-107); Estimated GFR 93.55 (mL/min/1.73m2); Folate 17.1 ng/mL (8.6-20.0); Glucose 103 mg/dL (74-106); Sodium 138 mmol/L (136-145); Total Protein 7.5 g/dL (6.4-8.2); Vitamin B12 919 pg/mL (193-986)
== END 2023-04-24 02:06 | disposition home or self-care (01) ==
PROVIDERS: PCP Family Medicine; Visit Provider Family Medicine
DX: G62.9 Polyneuropathy, unspecified (principal); F41.8 Other specified anxiety disorders; I10 Essential (primary) hypertension; Z79.899 Other long term (current) drug therapy
CPT/HCPCS: 36415; 80053; 82607; 82746; 85025

== ENCOUNTER 2023-05-08 02:13 | Outpatient (CLI) | payer MEDICARE, SELFPAY ==
[2023-05-08 14:55] LABS: TSH (W/Ref FT4) 2.49 uIU/mL (0.36-3.74)
== END 2023-05-08 02:14 | disposition home or self-care (01) ==
PROVIDERS: PCP Family Medicine; Visit Provider Family Medicine
DX: R53.83 Other fatigue (principal)
CPT/HCPCS: 36415; 84443

== ENCOUNTER 2023-05-10 18:35 | Outpatient (CLI) | payer MEDICARE, SELFPAY ==
--- NOTE | 2023-05-10 19:01 | DI.RAD_ITS ---
Exam(s) XR RIBS LT W PA LAT CHEST CLINICAL HISTORY evaluate for fx. COMPARISON: CR LEFT SHOULDER COMPLETE from 06/11/2018 TECHNIQUE:: PA and lateral views of the chest and four views of the left ribs were performed. FINDINGS: LUNGS: Clear. No pleural abnormality seen. HEART: Normal. MEDIASTINUM: Normal. BONES: No displaced rib fracture is seen. No compression fractures are seen in the thoracic spine. No bony destructive lesion is seen. OTHER FINDINGS: None. IMPRESSION: 1. Unremarkable radiographic appearance of the left ribs. 2. No acute pulmonary findings.
--- NOTE | 2023-05-10 19:01 | DI.RAD_ITS ---
Exam(s) XR SCAPULA LT EXAM: XR SCAPULA LT CLINICAL HISTORY: left scapular pain. TECHNIQUE: 2D digital imaging was performed. COMPARISON: MR MR UPPER JOINT LT WO from 02/01/2021 FINDINGS: BONES: No acute fracture is present. No bony destructive lesion is seen. JOINTS: No dislocation present. SOFT TISSUE: Normal. IMPRESSION: Unremarkable radiographs of the left scapula. DATA REPOSITORY: RADIATION DOSE DELIVERED:
--- NOTE | 2023-05-10 20:51 | DI.VRAD_ITS ---
PROCEDURE INFORMATION: Exam: XR Left Ribs Exam date and time: 05/10/2023 19:08 Age: 77 years old Clinical indication: Injury or trauma; Fall; Blunt trauma (contusions or hematomas); Rib area, left side; Additional info: Fall pain TECHNIQUE: Imaging protocol: Radiologic exam of the left ribs. Views: 2 views. COMPARISON: MR UPPER JOINT LT WO 02/01/2021 11:36 FINDINGS: Bones/joints: The bones are demineralized. Demineralization. No acute fracture with attention to the left-sided ribs. Soft tissues: Normal. IMPRESSION: Demineralization. No acute fracture with attention to the left-sided ribs. PROCEDURE INFORMATION: Exam: XR Chest Exam date and time: 05/10/2023 19:08 Age: 77 years old Clinical indication: Injury or trauma; Fall; Blunt trauma (contusions or hematomas); Rib area, left side; Additional info: Fall pain TECHNIQUE: Imaging protocol: Radiologic exam of the chest. Views: 2 views. COMPARISON: MR UPPER JOINT LT WO 02/01/2021 11:36 FINDINGS: Lungs: Mild hyperinflation without airspace consolidation. Minimal subsegmental atelectasis most likely in the left mid lung zone. Pleural spaces: No pleural effusion. No pneumothorax. Heart/Mediastinum: No cardiomegaly. Bones/joints: Evidence of right rotator cuff repair. The bones are demineralized. IMPRESSION: Mild hyperinflation without airspace consolidation. Dictated and Authenticated by: Carol Culp MD. Ordering:RAMAN Perez MD
--- NOTE | 2023-05-10 20:52 | DI.VRAD_ITS ---
PROCEDURE INFORMATION: Exam: XR Left Scapula Exam date and time: 05/10/2023 19:11 Age: 77 years old Clinical indication: Injury or trauma; Fall; Blunt trauma (contusions or hematomas); Shoulder; Left; Additional info: Fall pain TECHNIQUE: Imaging protocol: Radiologic exam of the left scapula. Complete exam. COMPARISON: CR XR RIBS LT W PA LAT CHEST 05/10/2023 19:08 FINDINGS: Bones/joints: The bones are demineralized. The scapula is intact. No acute fracture or subluxation. Soft tissues: Normal. IMPRESSION: The scapula is intact. Dictated and Authenticated by: Carol Culp MD. Ordering:RAMAN Perez MD
== END 2023-05-10 18:55 ==
PROVIDERS: PCP Family Medicine; Visit Provider Nurse Practitioner Family
DX: R07.81 Pleurodynia (principal)
CPT/HCPCS: 71046; 71100; 73010

== ENCOUNTER 2023-08-09 17:56 | Emergency (ER) | payer MEDICARE, SELFPAY ==
[2023-08-09] VITALS (7 sets, daily range): BP systolic 147–195; BP diastolic 76–84; PULSE 63–80; RESP 18–20; TEMP 36.9; O2SAT 94–98
--- NOTE | 2023-08-09 18:30 | DI.RAD_ITS ---
Exam(s) XR PELVIS AP EXAM: XR PELVIS AP CLINICAL HISTORY: fell back from 3ft up, head strike and low back. TECHNIQUE: 2D digital imaging was performed. COMPARISON: No exams were available for comparison FINDINGS: BONES: No acute fracture is present. No bony destructive lesion is seen. JOINTS: No dislocation present. There are degenerative changes seen in the hips in the lumbar spine. SOFT TISSUE: Normal. IMPRESSION: No acute fracture or dislocation. DATA REPOSITORY: RADIATION DOSE DELIVERED:
--- NOTE | 2023-08-09 18:30 | DI.RAD_ITS ---
Exam(s) XR CHEST 2V PA LATERAL EXAM: XR CHEST 2V PA LATERAL CLINICAL HISTORY: fell back from 3ft up, head strike and low back TECHNIQUE: 2D digital imaging was performed of the chest. Two images were obtained. PA and lateral views were obtained. COMPARISON: CR,XR XR RIBS LT W PA LAT CHEST from 05/10/2023 FINDINGS: MEDIASTINUM: Normal. HEART: Normal. PULMONARY VASCULATURE: Normal. LUNGS: Clear. PLEURAL SPACE: No pleural effusion or pneumothorax. BONE:Within normal limits for the patient's age. OTHER FINDINGS:Normal. IMPRESSION: No acute pulmonary findings. DATA REPOSITORY: RADIATION DOSE DELIVERED:
--- NOTE | 2023-08-09 18:30 | DI.CT_ITS ---
Exam(s) CT HEAD WO EXAM: CT HEAD WO CLINICAL HISTORY: fell back from 3ft up, head strike and low back. TECHNIQUE: Imaging Protocol: Axial computed tomography images with coronal and sagittal reformatted images were created and reviewed COMPARISON: CT HEAD NECK FACIAL WO from 06/11/2018 FINDINGS: Ventricles and Extra axial spaces: Normal in size and morphology for the patient's age. Hemorrhage: None. Cerebral parenchyma: There are areas of decreased attenuation in the white matter likely reflecting s mall vessel ischemic disease. No acute mass effect is identified. Midline shift: None. Brainstem/Cerebellum: Normal. Calvarium: Normal. Visualized Paranasal sinuses/Mastoids: Mild paranasal sinus disease. Soft Tissues: Unremarkable. IMPRESSION: No acute intracranial process. RADIATION DOSE DELIVERED: 705.18mGy.cm Total DLP DATA REPOSITORY: All CT scans at this facility are submitted to the National Radiology Data Registry (NRDR) Dose Index Registry (DIR) with the [employer] (ACR). RADIATION OPTIMIZATION: All CT scans at this facility use at least one of these dose optimization te chniques: automated exposure control; mA and/or kV adjustment per patient size (includes targeted exa ms where dose is matched to clinical indication); or iterative reconstruction.
[2023-08-09] MEDS: Acetaminophen 500 MG TAB PO (18:38)
--- NOTE | 2023-08-09 18:39 | ED.GENADUL_ITS ---
Discharge Plan Disposition Patient Disposition: Home Discharge Details Clinical Impression: Fall, Back pain Primary Care Provider: [facility] ED Provider: Yulia Hernandez Home Meds and New Rx's Prescriptions: No Action ibuprofen-acetaminophen 125-250 mg tablet 2 tab PO Q8H PRN mupirocin 2 % ointment 1 applic topical TID Qty: 15 0RF clobetasol 0.05 % cream topical Patient Comments: APPLY TWICE DAILY TO RASH ON LEGS FOR UP TO 2 WEEKS PER MONTH NEEDED paroxetine HCl 40 mg tablet 40 mg PO DAILY Qty: 30 0RF clonazepam 0.5 mg tablet 0.25 mg PO DAILY MDD 0.25mg Qty: 14 2RF amlodipine 5 mg tablet 5 mg PO DAILY Qty: 30 3RF cod liver oil 1 EACH capsule 1 ea PO DAILY ascorbic acid (vitamin C) [Vitamin C] 500 MG tablet 500 mg PO DAILY multivitamin 1 EACH capsule 1 ea PO BID vitamin B complex 1 EACH capsule 1 ea PO DAILY cholecalciferol (vitamin D3) [Vitamin D3] 2,000 UNIT capsule 2,000 unit PO DAILY Nrmovwjugqy-Hcckn-PIX Complex 1 EACH tablet 1 ea PO TID milk thistle seed extract 175 MG capsule 175 mg PO DAILY Zyflanemd 1 tab PO BID Discharge Instructions Instructions: Back Pain (ED) Additional Instructions: HAVE A HAPPY BIRTHDAY!!!!! Take tylenol and ibuprofen over the counter as needed for pain; follow the directions on the bottle. Call your primary care doctor tomorrow to schedule an appointment to follow up on your visit today. Return to the emergency department for new or worsening symptoms, including severe pain, vomiting, numbness or weakness, or if you have any other concerns. Medical Decision Making 78yo F with hx of HTN presenting for fall; fell backwards from about three feet onto concrete, struck her low back and then her head. No LOC, No AC. Has posterior head pain and low back pain, otherwise denies pain or injury. Vital signs reassuring, no significant traumatic findings on exam. Normal neurologic exam. Given age and higher risk for intracranial bleed or fracture, will get noncon head CT and plain films. Will start with tylenol for pain, add toradol if imaging negative. Head CT independently reviewed, no mass or intracranial bleed on my view, awaiting radiology read. Sign out to oncoming physician at 2014, plan to followup on plain films and CT read. If negative would trial ambulation and discharge home. Imaging Data Radiologic Study: Imaging: CT Scan Radiologic Study #2: Imaging: X-Ray Radiologic Study #3: Imaging: X-Ray HPI General Mode of arrival: ambulatory . Date/Time Provider Initiated Documentation: 08/09/23 18:06 . Limitations to Documentation: no limitations . Information obtained by: patient . HPI Narrative: 78yo F with hx of HTN presenting for fall. Was standing on rear-bumper of truck ~3 feet off the ground, fell backward and landed on her low back and then struck her head. Did not lose consciousness. Has mild posterior head pain and moderate low lumbar back pain bilaterally. No numbness, tingling, or weakness. No vision changes or vertigo. Does not take any blood thinners. Denies pain or injury elsewhere. She is otherwise in her usual state of health with no fevers, chills, rash, nausea, vomiting, abdominal pain, chest pain, or other concerns. Related Data Home Medications Medication Instructions Recorded Confirmed Zyflanemd 1 tab PO BID 07/03/18 08/09/23 ascorbic acid (vitamin C) 500 mg 500 mg PO DAILY 07/03/18 08/09/23 tablet (Vitamin C) cholecalciferol (vitamin D3) 50 2,000 unit PO DAILY 07/03/18 08/09/23 mcg (2,000 unit) capsule (Vitamin D3) cod liver oil 1 ea PO DAILY 07/03/18 08/09/23 glucosamine 375 sn-uqgbcwiab-sfv 1 ea PO TID 07/03/18 08/09/23 no1 500 mg-C 15 mg-jaci 0.5 mg tablet (Wuhateldwjm-Dymoflvfwjy-WUY Complex) milk thistle seed extract 175 mg 175 mg PO DAILY 07/03/18 08/09/23 capsule multivitamin 1 ea PO BID 07/03/18 08/09/23 vitamin B complex 1 ea PO DAILY 07/03/18 08/09/23 ibuprofen 125 mg-acetaminophen 250 2 tab PO Q8H PRN 11/17/22 08/09/23 mg tablet mupirocin 2 % topical ointment 1 applic topical TID #15 grams 03/30/23 08/09/23 clobetasol 0.05 % topical cream g topical 06/15/23 06/15/23 clonazepam 0.5 mg tablet 0.25 mg PO DAILY #14 tabs 07/11/23 08/09/23 amlodipine 5 mg tablet 5 mg PO DAILY #30 tabs 07/18/23 paroxetine HCl 40 mg tablet 40 mg PO DAILY #30 tabs 07/26/23 08/09/23 Previous Rx's Medication Instructions Recorded mupirocin 2 % topical ointment 1 applic topical TID #15 grams 03/30/23 clonazepam 0.5 mg tablet 0.25 mg PO DAILY #14 tabs 07/11/23 amlodipine 5 mg tablet 5 mg PO DAILY #30 tabs 07/18/23 paroxetine HCl 40 mg tablet 40 mg PO DAILY #30 tabs 07/26/23 Allergies Allergy/AdvReac Type Severity Reaction Status Date / Time latex Allergy Unknown red & itchy Verified 08/09/23 18:05 morphine AdvReac Intermediate Paranoia Verified 08/09/23 18:05 oxycodone [From Percocet] AdvReac Intermediate nausea/vomi Verified 08/09/23 18:05 tting Sulfa (Sulfonamide AdvReac Intermediate NAUSEA AND Verified 08/09/23 18:05 Antibiotics) VOMITING General Stated Complaint: Trauma EBONI: 3 Review of Systems Narrative: see HPI PFSH All Active Problems (Updated 08/09/23 @ 19:48 by Yulia Hernandez MD) Fall (Acute) Back pain (Acute) Recurrent falls (Chronic) Anxiety (Chronic) H/O OCD Depressive disorder (Chronic) Essential hypertension (Chronic 11/18/13) Gastroesophageal reflux disease (Chronic 11/30/14) Neoplasm of skin (Chronic 12/08/13) Osteoporosis (Chronic) Peripheral neuropathy (Chronic) Hepatomegaly (Chronic) Urinary incontinence, mixed (Chronic ~01/2023) s/p Pelvic floor PT Medical History [place]ident on farm Mauled by cow-right orbital FX; L-4 burst FX; liver laceration; L3 transverse process FX Attention deficit disorder (ADD) in adult Bunion of great toe of right foot (12/25/14) Closed fracture of lateral portion of right tibial plateau H/O trauma farm accident Left rotator cuff tear 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 10/03/2022 Surgical History Open Carpal Tunnel release (01/13/15) [facility]; RIGHT Rotator Cuff Repair S/P cataract surgery (07/08/18) Status post carpal tunnel release Status post dilation and curettage Status post laminectomy Status post tonsillectomy and adenoidectomy Family History Mother Dementia Mental disorder DEMENTIA Father Personal history of malignant neoplasm LYMPHOMA Stroke Parkinson disease Sister Essential hypertension Personal history of malignant neoplasm UTERINE CELLS Brother No problems noted. Grandfather Parkinson disease Grandfather , FLU at age 28. No problems noted. Grandmother Diabetes Grandmother No problems noted. Other Heart disease Social History Smoking/Tobacco Use Status: Never Tobacco: How many years used: 3 Smoking risk assessment performed?: Yes Alcohol Intake: current Alcohol Intake frequency: 0-2 drinks per day Alcohol type: hard liquor Counseling provided: provider counseling, reduce to 2 or less/day, support program, other and none Details: 1 hard liquor per day Drug use: Never Substance use type: does not use Caregiver/Support person: No Household members: none Housing: house Communication Needs: None Do you need help understanding health information?: Never current occupation: [employer] Pets and animals: Yes Pets and animals: dog(s) Sexually active: No Do you think of yourself as: straight/heterosexual Current gender identity: female What is your relationship status?: never How often do you talk on the phone with friends or family?: once per week How often do you get together with friends or relatives?: once per week How often do you attend tenriism or christianity services?: decline to answer Do you belong to any clubs or organized social groups?: no Panel score (0-1 are the most socially isolated patients): 0 What type of physical activity do you participate in: walking and other Details: Core excercising Duration: 45-60 minutes/day Frequency: daily Martha/Bahai: No preference Special martha needs: No Do you feel safe at home: Yes Do you feel safe in your relationship?: Yes Exam Narrative Exam Narrative: GENERAL: Alert, in no acute distress. SKIN: Warm and well perfused. No rashes, bruises, discolorations or abrasions. HEAD: Atraumatic, normocephalic without edema, discoloration or evidence of trauma. Facial bones without deformities or tenderness. EYES: PERRL. No scleral icterus or conjunctival injection. Extraocular muscles intact without nystagmus or diplopia. No proptosis or enophthalmos. EARS: Normal appearing pinnae. No hemotympanum. NOSE: No discharge, tenderness, laxity. No nasal septal hematoma. MOUTH: No malocclusion or trismus. Moist mucus membranes without blood. NECK: Trachea midline. No discolorations or edema. CV: Regular rate and rhythm, Normal s1 and s2. No murmurs, rubs, or gallops. PV: Radial pulses 2+ bilaterally and symmetric. Dorsalis pedis pulses 2+ bilaterally and symmetric. 2+ capillary refill. No extremity edema. CHEST: No abrasions or ecchymosis. Chest symmetric with respirations. No chest wall tenderness. Lungs are clear to auscultation bilaterally. ABDOMEN: No ecchymosis or abrasions. Soft, nondistended, nontender. BACK: No abrasions, skin openings, or ecchymosis. Spine without bony tenderness, no step offs. PELVIC: Pelvis stable, nontender to lateral compression and palpation of symphysis pubis. MSK: No gross deformities or discolorations or lesions. Tolerates full range of motion of extremities without tenderness. Neuro: GCS 15. PERRL. EOMI. Fluent speech, no dysarthria. Normal sensation in V1, V2, and V3 segments bilaterally. No asymmetry, no nasolabial fold flattening. Normal hearing to speech. No uvular deviation. Midline tongue protrusion Motor- 5/5 strength symmetric bilateral upper and lower extremities including s elbow flexors/extensors, wrist flexors/extensors, finger abductors/adductors, hipflexors/extensors, knee flexors/extensors, ankle dorsiflexors and planter flexors. Sensation- Intact to light touch and symmetric multiple dermatomes including upper and lower extremities Coordination- No dysmetria on finger to nose Course Vital Signs Vital signs: Vital Signs Temperature 36.9 C 08/09/23 18:00 Pulse 80 08/09/23 18:00 Respiratory Rate 20 08/09/23 18:00 Blood Pressure 147/79 H 08/09/23 18:00 Pulse Oximetry 98 08/09/23 18:00 Temperature 36.9 C 08/09/23 18:00 Temperature Source Skin 08/09/23 18:00 Pulse 80 08/09/23 18:00 Respiratory Rate 20 08/09/23 18:00 Respiratory Effort Normal, Non-Labored 08/09/23 18:09 Blood Pressure 147/79 H 08/09/23 18:00 Blood Pressure Position Sitting 08/09/23 18:00 Pulse Oximetry 98 08/09/23 18:00 Oxygen Delivery Method Room Air 08/09/23 18:00 Oxygen Flow Rate 0 08/09/23 18:00 Pain Level 10 08/09/23 18:38 Sign Out Sign Out Data: Sign Out Comment: Birthday girl with fall backward from 3 feet up, struck low back then head. Benign exam. Pending reads of CT head and plain films chest/pelvis, anticipate dc home. Dc instructions written. Last updated by Yulia Hernandez MD at 08/09/23 19:50 PAWSS Have you Been Recently Intoxicated or Drunk Within the Last 30 days?: No Have you Ever Experienced Previous Episodes of Alcohol Withdrawal?: No Have you ever Experienced Withdrawal Seizures?: No Have you ever Experienced Delirium Tremens(DT)s?: No Have you ever undergone Alcohol Rehabilitation Treatment (i.e, inpt ot outpatient treatment programs)?: No Have you ever Experienced Blackouts?: No Have you ever Combined Alcohol with other Downers within the last 90 days?: No Have you ever Combined Alcohol with any other Substance of Abuse during the last 90 days?: No Positive Blood Alcohol level on Presentation? [PCS.BAL]: No Evidence of Increased Autonomic Activity (i.e. HR>120, tremor, sweating, agitation, nausea)?: No Result: 0
--- NOTE | 2023-08-09 20:14 | DI.VRAD_ITS ---
PROCEDURE INFORMATION: Exam: CT Head Without Contrast Exam date and time: 08/09/2023 7:09 PM Age: 78 years old Clinical indication: Other: Fell backward 3ft, head strike TECHNIQUE: Imaging protocol: Computed tomography of the head without contrast. COMPARISON: CT HEAD NECK FACIAL WO 06/11/2018 2:09 PM FINDINGS: Brain: Periventricular and subcortical white matter areas of hypoattenuation, likely chronic small vessel ischemic change, demyelination, or gliosis. No intracranial mass, acute hemorrhage, or acute infarction. Cerebral ventricles: No ventriculomegaly. Paranasal sinuses: Minimal ethmoid and left maxillary sinus disease. Mastoid air cells: Normal as visualized. Bones/joints: Normal. Soft tissues: Unremarkable. IMPRESSION: No acute intracranial abnormality. Dictated and Authenticated by: Franck Panda MD. Ordering:JOE Bender MD
--- NOTE | 2023-08-09 20:16 | DI.VRAD_ITS ---
PROCEDURE INFORMATION: Exam: XR Chest Exam date and time: 08/09/2023 7:14 PM Age: 78 years old Clinical indication: Other: Fell back from 3ft up, head strike and low back TECHNIQUE: Imaging protocol: Radiologic exam of the chest. Views: 2 views. COMPARISON: CR XR RIBS LT W PA LAT CHEST 05/10/2023 7:08 PM FINDINGS: Lungs: Normal. Pleural spaces: Unremarkable. No pleural effusion. No pneumothorax. Heart/Mediastinum: Normal. Vasculature: Atherosclerotic vascular disease. Bones/joints: Soft tissue anchors project over the right humeral head from prior rotator cuff repair. Degenerative changes of the glenohumeral and acromioclavicular joints, with joint space narrowing minimal osteophyte formation. Multilevel thoracic spine degenerative disc space narrowing and osteophyte formation. IMPRESSION: No acute cardiopulmonary abnormality. Dictated and Authenticated by: Franck Panda MD. Ordering:JOE Bender MD
--- NOTE | 2023-08-09 20:23 | DI.VRAD_ITS ---
PROCEDURE INFORMATION: Exam: XR Pelvis Exam date and time: 08/09/2023 7:18 PM Age: 78 years old Clinical indication: Injury or trauma; Fall; Other: Fell back from 3ft up, head strike and low back TECHNIQUE: Imaging protocol: Radiologic exam of the pelvis. Views: 1 or 2 view. COMPARISON: CR XR HIP RT COMPLETE AP PELVIS 08/07/2022 4:23 PM FINDINGS: Bones/joints: Degenerative changes of the lower lumbar spine, with disc space narrowing and facet arthropathy. Mild degenerative changes of the hips, mild joint space narrowing minimal osteophyte formation. No acute fracture or dislocation. Soft tissues: Unremarkable. Vasculature: Phleboliths within the left pelvis. IMPRESSION: No acute fracture or dislocation. Dictated and Authenticated by: Franck Panda MD. Ordering:JOE Bender MD
[2023-08-09] MEDS: Ketorolac 15 MG/ML VIAL IM (20:29)
--- NOTE | 2023-08-09 20:35 | NUR.NOTE ---
PT ambulated 22 yrds to bathroom without assistance Nursing Note:
--- NOTE | 2023-08-09 21:19 | W.EDPROG ---
Date of service: 08/09/23 Time of Service: 21:20 Medical Decision Making Patient was signed out to me by my colleague , please refer to her HPI, physical exam, assessment and plan. At time of signout we are awaiting x-ray results. X-ray and CT scan results have returned, no evidence of acute process per virtual radiology. Patient feels well, she ambulated well, showed no neurologic deficits. She is slightly sore. Will recommend NSAIDs at home, Voltaren gel, close follow-up. Discussed red flags for which to return. I have extensively reviewed the treatment plan and discharge instructions with the patient. I have addressed all patient concerns at this time. The patient was made aware of what symptoms to monitor for that would warrant a return to the emergency department. Discussed the plan with the patient, they demonstrate verbal understanding and agreement with our assessment and plan at this time. The documentation in this chart was dictated using [employer] dictation software. Please excuse any dictation errors. FINDINGS: Brain: Periventricular and subcortical white matter areas of hypoattenuation, likely chronic small vessel ischemic change, demyelination, or gliosis. No intracranial mass, acute hemorrhage, or acute infarction. Cerebral ventricles: No ventriculomegaly. Paranasal sinuses: Minimal ethmoid and left maxillary sinus disease. Mastoid air cells: Normal as visualized. Bones/joints: Normal. Soft tissues: Unremarkable. IMPRESSION: No acute intracranial abnormality. Thank you for allowing us to participate in the care of your patient. Dictated and Authenticated by: Franck Panda MD 08/09/2023 8:14 PM Eastern Time ([place] & [place]) FINDINGS: Lungs: Normal. Pleural spaces: Unremarkable. No pleural effusion. No pneumothorax. Heart/Mediastinum: Normal. Vasculature: Atherosclerotic vascular disease. Bones/joints: Soft tissue anchors project over the right humeral head from prior rotator cuff repair. Degenerative changes of the glenohumeral and acromioclavicular joints, with joint space narrowing minimal osteophyte formation. Multilevel thoracic spine degenerative disc space narrowing and osteophyte formation. IMPRESSION: No acute cardiopulmonary abnormality. Thank you for allowing us to participate in the care of your patient. Dictated and Authenticated by: Franck Panda MD 08/09/2023 8:16 PM Eastern Time ([place] & [place]) FINDINGS: Bones/joints: Degenerative changes of the lower lumbar spine, with disc space narrowing and facet arthropathy. Mild degenerative changes of the hips, mild joint space narrowing minimal osteophyte formation. No acute fracture or dislocation. Soft tissues: Unremarkable. Vasculature: Phleboliths within the left pelvis. IMPRESSION: No acute fracture or dislocation. Thank you for allowing us to participate in the care of your patient. 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 Benign exam. Pending reads of CT head and plain films chest/pelvis, anticipate dc home. Dc instructions written. Last updated by Yulia Hernandez MD at 08/09/23 19:50 Discharge Plan Disposition Patient Disposition: Home Discharge Details Clinical Impression: Fall, Back pain Primary Care Provider: Serenity Paniagua ED Provider: Reji Tarango Home Meds and New Rx's Prescriptions: No Action ibuprofen-acetaminophen 125-250 mg tablet 2 tab PO Q8H PRN mupirocin 2 % ointment 1 applic topical TID Qty: 15 0RF clobetasol 0.05 % cream topical Patient Comments: APPLY TWICE DAILY TO RASH ON LEGS FOR UP TO 2 WEEKS PER MONTH NEEDED paroxetine HCl 40 mg tablet 40 mg PO DAILY Qty: 30 0RF clonazepam 0.5 mg tablet 0.25 mg PO DAILY MDD 0.25mg Qty: 14 2RF amlodipine 5 mg tablet 5 mg PO DAILY Qty: 30 3RF cod liver oil 1 EACH capsule 1 ea PO DAILY ascorbic acid (vitamin C) [Vitamin C] 500 MG tablet 500 mg PO DAILY multivitamin 1 EACH capsule 1 ea PO BID vitamin B complex 1 EACH capsule 1 ea PO DAILY cholecalciferol (vitamin D3) [Vitamin D3] 2,000 UNIT capsule 2,000 unit PO DAILY Kekpwlwmsux-Safxn-OVJ Complex 1 EACH tablet 1 ea PO TID milk thistle seed extract 175 MG capsule 175 mg PO DAILY Zyflanemd 1 tab PO BID Discharge Instructions Instructions: Back Pain (ED) Additional Instructions: HAVE A HAPPY BIRTHDAY!!!!! Take tylenol and ibuprofen over the counter as needed for pain; follow the directions on the bottle. Use diclofenac/Voltaren gel in your joints if they are sore. Call your primary care doctor tomorrow to schedule an appointment to follow up on your visit today. Return to the emergency department for new or worsening symptoms, including severe pain, vomiting, numbness or weakness, or if you have any other concerns. Referrals: Serenity Paniagua MD [Primary Care Provider] -
== END 2023-08-09 21:27 | disposition home or self-care (01) ==
PROVIDERS: Emergency Provider Student in an Organized Health Care Education/Training Program; PCP Family Medicine
DX: M54.50 Low back pain, unspecified (principal); S09.90XA Unspecified injury of head, initial encounter; V59.88XA Occupant (driver) (passenger) of pick-up truck or van injured in other specified transport accidents, initial encounter
CPT/HCPCS: 96372; 99284; 70450; 71046; 72170; J1885

== ENCOUNTER 2024-04-21 16:33 | Outpatient (CLI) | payer MEDICARE, SELFPAY ==
[2024-04-21 16:44] LABS: Anion Gap 9.7 mmol/L (3-11); BUN 21 mg/dL (7-18); CO2 27.3 mmol/L (21.0-32.0); CREATININE 0.6 mg/dL (0.55-1.02); Calcium 9.7 mg/dL (8.5-10.1); Chloride 102 mmol/L (98-107); Estimated GFR 92.97 (mL/min/1.73m2); Glucose 99 mg/dL (74-106); Potassium 4.1 mmol/L (3.5-5.1); Sodium 139 mmol/L (136-145)
[2024-04-21 16:50] LABS: Bilirubin Negative (Negative); Blood Negative (Negative); Clarity Clear (Clear); Glucose Negative (Negative); Ketones Negative (Negative); Leukocyte Esterase Negative (Negative); Nitrite Negative (Negative); Urobilinogen 0.2 mg/dL (Up to 0.2); pH 6.5 (5-8)
== END 2024-04-21 16:34 | disposition home or self-care (01) ==
LOC: LBO 16:33
PROVIDERS: PCP Nurse Practitioner Family; Visit Provider Family Medicine
DX: I10 Essential (primary) hypertension (principal)
CPT/HCPCS: 36415; 80048; 81003

== ENCOUNTER → 2024-06-20 09:50 | Outpatient (CLI) | payer MEDICARE, SELFPAY ==
--- NOTE | 2024-06-20 08:45 | DI.RAD_ITS ---
Exam(s) XR KNEE RT 3V AP,LAT,MATIAS EXAM: XR KNEE RT 3V AP,LAT,MATIAS CLINICAL HISTORY: rt knee pain, m25.561. TECHNIQUE: 2D digital imaging was performed. COMPARISON: CR XR KNEE RT 2V AP,LAT from 10/21/2020 FINDINGS: 3 views No evidence of fracture. Small amount of increased joint fluid noted. There is mild narrowing of th e lateral compartment. Small marginal osteophytes off the lateral compartment. Medial compartment e xhibits normal height. There is chondrocalcinosis in both medial lateral compartments. No osteochon dral defects. IMPRESSION: Degenerative changes involving the lateral compartment. DATA REPOSITORY: RADIATION DOSE DELIVERED:
== END ==
PROVIDERS: PCP Nurse Practitioner Family; Visit Provider Nurse Practitioner Family
DX: M25.561 Pain in right knee (principal)
CPT/HCPCS: 73562

== ENCOUNTER 2024-06-26 02:32 | Outpatient (CLI) | payer MEDICARE, SELFPAY ==
--- NOTE | 2024-06-26 08:45 | DI.RAD_ITS ---
Exam(s) XR LUMBAR SPINE COMPLETE EXAM: XR LUMBAR SPINE COMPLETE CLINICAL HISTORY: back pain,M54.9. TECHNIQUE: 2D digital imaging was performed. COMPARISON: CR XR DEXA BONE DENSITY W/WO TRENT from 07/21/2022 CR,XR XR CHEST 2V PA LATERAL from 08/09/2023 FINDINGS: Five views. There are compression fractures of L2 and L4. L4 compression fracture was evident on lateral public health dietitian f ilm of DEXA scan 07/21/2022. The L2 compression fracture was not previously present. There is some posterior displacement of the cysts superior aspect of the posterior cortex of both these vertebral b odies, both by approximately 5 mm relative to the posterior cortex of the adjacent vertebral bodies. There is moderate asymmetric disc space narrowing at L4-5. There is more significant narrowing on th e right than the left side at this level. L5-S1 exhibits advanced uniform disc space narrowing. The re are mild degenerative changes in the facet joints. No facet malalignment. Significant listhesis. Sacroiliac joints appear unremarkable. There is no scoliosis. IMPRESSION: There is a 70 percent compression fracture of L2 which was not present on prior images of July 14. There is a 50 percent compression fracture of L4 which appears to have been probably present in 2021. Multilevel disc space narrowing, this being asymmetric at L4-5 as described above. DATA REPOSITORY: RADIATION DOSE DELIVERED:
--- NOTE | 2024-06-26 08:45 | DI.RAD_ITS ---
Exam(s) XR KNEE LT 3V AP,LAT,MATIAS EXAM: XR KNEE LT 3V AP,LAT,MATIAS CLINICAL HISTORY: left knee pain,M25.562. TECHNIQUE: 2D digital imaging was performed. COMPARISON: CR XR KNEE RT 3V AP,LAT,MATIAS from 06/20/2024 FINDINGS: 3 views No evidence of fracture although there does appear to be a small amount of increased joint fluid. Marco Antonio ne density is normal. No osseous lesions. Mild degenerative changes in the medial compartment. Lalo nt chondrocalcinosis. No osseous lesions. IMPRESSION: No acute osseous findings. Mild degenerative change medial compartment. Small amount of increased j oint fluid. DATA REPOSITORY: RADIATION DOSE DELIVERED:
--- NOTE | 2024-06-26 08:45 | DI.RAD_ITS ---
Exam(s) XR HIP LT COMPLETE AP PELVIS EXAM: XR HIP LT COMPLETE AP PELVIS CLINICAL HISTORY: left hip pain,M25.552. TECHNIQUE: 2D digital imaging was performed. COMPARISON: CR,XR XR PELVIS AP from 08/09/2023 FINDINGS: Two views No evidence of pelvic nor hip fracture. No hip joint space narrowing. Additional lateral view of th e left hip does not reveal joint space narrowing nor osteophytes. No osseous lesions evident. Incidentally noted is asymmetric narrowing of the L4-5 disc space, more so on the right than the left. This can be associated with right-sided foraminal stenosis. IMPRESSION: No acute osseous findings in the pelvis/hips Incidental L4-5 finding as described above. DATA REPOSITORY: RADIATION DOSE DELIVERED:
== END 2024-06-26 02:52 ==
LOC: DI 02:32
PROVIDERS: PCP Nurse Practitioner Family; Visit Provider Nurse Practitioner Family
DX: M25.562 Pain in left knee (principal); M51.36 Other intervertebral disc degeneration, lumbar region; M25.552 Pain in left hip
CPT/HCPCS: 73562; 72110; 73502

== ENCOUNTER 2024-07-25 00:34 | Outpatient (CLI) | payer MEDICARE, SELFPAY ==
--- NOTE | 2024-07-25 07:39 | DI.MRI_ITS ---
Exam(s) MR LOWER JOINT RT WO EXAM: MR LOWER JOINT RT WO CLINICAL HISTORY: right knee pain,?mcl/meniscus tear,s83.411a. TECHNIQUE: Multiplanar multisequence MRI was performed. COMPARISON: CR XR KNEE LT 3V AP,LAT,MATIAS from 06/26/2024 FINDINGS: BONES: There is no fracture or contusion pattern. Mild periarticular spurring. JOINTS: A small joint effusion is present. Articular cartilage: Patellofemoral joint: Thinning without focal defect. Medial femoral tibial joint: Thinning without focal defect. Lateral femoral tibial joint: Articular cartilage is unremarkable. LIGAMENTS: Anterior Cruciate: Unremarkable. Posterior Cruciate: Unremarkable. Medial Collateral:Surrounding edema but no evidence focal tear. Lateral Collateral ligament complex: Unremarkable. TENDONS: Extensor mechanism: Unremarkable. Medial retinaculum: Unremarkable. Lateral retinaculum: Unremarkable. Popliteus: Unremarkable. MENISCI: The medial meniscus is somewhat peripherally displaced, consistent with degenerative changes. There is abnormal high signal extending horizontally through the body as well as some amorphous increased s ignal in the body consistent with tear. The lateral meniscus meniscus shows some increased signal in the body without definite surfacing tear . MUSCLES: Unremarkable. SOFT TISSUES: Linn's cyst measuring 2.5 x 1.6 by 6.1 cm. IMPRESSION: Medial collateral ligament sprain. Horizontal tear through the body of the medial meniscus. Degenerative changes of the body of the lateral in is considered at definite tear. DATA REPOSITORY:
== END 2024-07-25 00:54 ==
LOC: DI 00:34
PROVIDERS: PCP Nurse Practitioner Family; Visit Provider Nurse Practitioner Family
DX: S83.242A Other tear of medial meniscus, current injury, left knee, initial encounter (principal); X58.XXXA Exposure to other specified factors, initial encounter
CPT/HCPCS: 73721

== ENCOUNTER 2024-08-11 02:23 | Outpatient (CLI) | payer MEDICARE, SELFPAY ==
--- NOTE | 2024-08-11 07:45 | DI.DEXA_ITS ---
Exam(s) XR DEXA BONE DENSITY W/WO TRENT EXAM: XR DEXA BONE DENSITY W/WO TRENT CLINICAL HISTORY: osteoporosis, m81.0 TECHNIQUE: COMPARISON: CR XR DEXA BONE DENSITY W/WO TRENT from 07/21/2022 CR XR LUMBAR SPINE COMPLETE from 06/26/2024 FINDINGS: Lateral Spine Image: Unremarkable. No compression deformities identified. Left hip: Total T-Score: -2.0. This compares to -1.7 on the prior examination. Total Z-Score: -0.2 T- and Z-scores: Findings are consistent with osteopenia. There is osteoporosis in the femoral neck with a T-score of -2.5. This is unchanged compared to the prior examination. Lumbar Spine: Total T-Score: 0.4. This compares to -1.5 on the prior examination. Total Z-Score: 2.9 T- and Z-scores: Within normal limits. Left forearm: Total T-score:-2.5. This compares to -2.8 on the prior examination. Total Z-score: 0.2 T and Z-score is: Findings are consistent with osteoporosis. IMPRESSION: There is osteoporosis again seen in the left femoral neck and the left forearm.
== END 2024-08-11 02:43 ==
LOC: DI 02:23
PROVIDERS: PCP Nurse Practitioner Family; Visit Provider Nurse Practitioner Family
DX: M81.0 Age-related osteoporosis without current pathological fracture (principal)
CPT/HCPCS: 77080

== ENCOUNTER 2024-08-25 15:36 | Outpatient (CLI) | payer MEDICARE, SELFPAY ==
--- NOTE | 2024-08-25 14:00 | DI.RAD_ITS ---
Exam(s) XR SHOULDER LT COMPLETE 2+V EXAM: XR SHOULDER LT COMPLETE 2+V CLINICAL HISTORY: left shoulder pain. TECHNIQUE: 2D digital imaging was performed. COMPARISON: CR,XR XR SCAPULA LT from 05/10/2023 FINDINGS: Two views No evidence of fracture or dislocation nor abnormal soft tissue calcifications in the subacromial spa ce height is within normal limits. However, there is relatively uniform narrowing of the glenohumeral joint space and there are opposing osteophytes on the inferior articular surface of the humeral head and osseous glenoid. There no sig nificant osseous lesions evident. Ipsilateral clavicle appears unremarkable as does the AC joint. 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 DATA REPOSITORY: RADIATION DOSE DELIVERED:
== END 2024-08-25 15:37 | disposition home or self-care (01) ==
LOC: DIORS 15:36
PROVIDERS: PCP Nurse Practitioner Family; Referring Provider Nurse Practitioner Family; Visit Provider Student in an Organized Health Care Education/Training Program
DX: M25.512 Pain in left shoulder (principal); M19.012 Primary osteoarthritis, left shoulder
CPT/HCPCS: J1010; 73030

== ENCOUNTER 2024-09-04 03:47 | Outpatient (CLI) | payer MEDICARE, SELFPAY ==
[2024-09-04 14:16] LABS: Calculated LDL 112 mg/dL (<100); Cholesterol 216 mg/dL (<200); HDL Cholesterol 95 mg/dL (40-60); Triglyceride 47 mg/dL (<150)
[2024-09-04 14:20] LABS: Hemoglobin A1C 5.8 % (<5.7)
[2024-09-04 23:39] LABS: Hep B Surface Ab Positive (See Note); Hepatitis B Core Antibody Negative (Negative); Hepatitis B Surface Antigen Negative (Negative)
[2024-09-04 23:40] LABS: HIV-1/2 Ag & Ab Screen Negative (Negative)
== END 2024-09-04 03:48 | disposition home or self-care (01) ==
PROVIDERS: PCP Nurse Practitioner Family; Visit Provider Nurse Practitioner Family
DX: Z11.59 Encounter for screening for other viral diseases (principal); R73.03 Prediabetes; Z11.4 Encounter for screening for human immunodeficiency virus [HIV]; E78.5 Hyperlipidemia, unspecified
CPT/HCPCS: 36415; 80061; 86704; 86706; 87340; 87389; 83036

== ENCOUNTER → 2024-09-17 10:04 | Outpatient (BNVA) | payer MEDICARE, SELFPAY | PROVIDERS: PCP Nurse Practitioner Family; Visit Provider Student in an Organized Health Care Education/Training Program | DX: M19.012 Primary osteoarthritis, left shoulder (principal); M75.102 Unspecified rotator cuff tear or rupture of left shoulder, not specified as traumatic | CPT/HCPCS: 99214 ==

== ENCOUNTER 2024-12-30 02:28 | Outpatient (CLI) | payer MEDICARE, SELFPAY ==
--- NOTE | 2024-12-30 14:10 | DI.RAD_ITS ---
Exam(s) XR FOOT RT COMPLETE EXAM: XR FOOT RT COMPLETE CLINICAL HISTORY: Right foot pain,m79.671. TECHNIQUE: 2D digital imaging was performed. COMPARISON: No exams were available for comparison FINDINGS: 3 views No evidence of acute fracture or diastasis of the Lisfranc joint. There is significant hallux valgus . Some degenerative change is also noted at the great toe metatarsophalangeal joint. There is also an element of lateral subluxation of the proximal phalanges of the 2nd, 3rd and 4th toes relative to the metatarsal heads but without joint space narrowing nor osteophytes at these levels. There are advanced degenerative changes at the midfoot level within the tarsometatarsal joints involv ing the 1st, 2nd, 3rd, and 4th TMT joints; less so at the 5th TMT joint. There is calcification in the plantar fracture noted. Tiny inferior calcaneal spur. There is a small enthesophyte on the posterior calcaneus Achilles insertion site. Some degenerative changes also evident on the dorsal aspect of the articulation between the distal navicular and medial cuneiform. IMPRESSION: Multilevel findings as described above. There are significant degenerative change at the level of th e tarsometatarsal joints; other findings as above. DATA REPOSITORY: RADIATION DOSE DELIVERED:
--- NOTE | 2024-12-30 14:10 | DI.RAD_ITS ---
Exam(s) XR FOOT LT COMPLETE EXAM: XR FOOT LT COMPLETE CLINICAL HISTORY: Left foot pain,M79.672. TECHNIQUE: 2D digital imaging was performed. COMPARISON: CR XR FOOT RT COMPLETE from 12/30/2024 FINDINGS: 3 views No evidence of fracture or diastasis of the Lisfranc joint. There is lateral subluxation of the prox imal phalanx of the 3rd toe. The 3rd metatarsophalangeal joint appears unremarkable as do the other metatarsophalangeal joints. There is significant degenerative change evident in the 2nd and 3rd tarsometatarsal joints with relat tayo sparing of the great toe tarsometatarsal joint. Bone density normal. No osseous lesions. No pe s planus. Some calcification in the plantar fascia is noted subjacent to a small inferior calcaneal spur. There is a small enthesophyte on the posterior calcaneus Achilles insertion site. IMPRESSION: Significant degenerative changes at the midfoot level in the 2nd and 3rd tarsometatarsal joints. Moderate lateral subluxation of the proximal phalanx of the 3rd toe relative to the 3rd metatarsal he ad. There are no degenerative changes at the 3rd metatarsophalangeal joint and no erosions nor evide nce of avascular necrosis of the metatarsal head. DATA REPOSITORY: RADIATION DOSE DELIVERED:
== END 2024-12-30 02:48 ==
LOC: DI 02:28
PROVIDERS: PCP Nurse Practitioner Family; Visit Provider Podiatrist
DX: M19.071 Primary osteoarthritis, right ankle and foot; M19.072 Primary osteoarthritis, left ankle and foot
CPT/HCPCS: 73630

== ENCOUNTER 2025-01-01 16:13 | Emergency (ER) | payer MEDICARE, SELFPAY ==
[2025-01-01 16:17] VITALS: BP 192/96; PULSE 71; RESP 18; TEMP 36.2; O2SAT 97
--- NOTE | 2025-01-01 16:30 | DI.RAD_ITS ---
Exam(s) XR KNEE LT 3V AP,LAT,MATIAS EXAM: XR KNEE LT 3V AP,LAT,MATIAS CLINICAL HISTORY: pain s/p fall last night. TECHNIQUE: 2D digital imaging was performed. COMPARISON: CR XR KNEE LT 3V AP,LAT,MATIAS from 06/26/2024 FINDINGS: 3 views No evidence of fracture or joint effusion. No significant joint space narrowing nor osteophytes. Marco Antonio ne density normal. No osseous lesions evident. IMPRESSION: No acute osseous findings in the left knee. DATA REPOSITORY: RADIATION DOSE DELIVERED:
--- NOTE | 2025-01-01 16:30 | DI.RAD_ITS ---
Exam(s) XR RIBS LT W PA LAT CHEST EXAM: XR RIBS LT W PA LAT CHEST CLINICAL HISTORY: pain s/p fall last night. TECHNIQUE: 2D digital imaging was performed. COMPARISON: CR,XR XR CHEST 2V PA LATERAL from 08/09/2023 FINDINGS: Seven views total: Left ribs-5views: No left rib fractures identified. No left rib lesions orbital. Left clavicle appe ars intact. Mild-moderate degenerative changes are noted in the left glenohumeral joint. Chest x-ray-2 views.: Heart size is normal mediastinum is not widened. There are no infiltrates nor pleural effusions. No evidence of lung contusion. No pneumothorax. IMPRESSION: No obvious left rib fractures. No acute pulmonary findings. No lung contusion or pneumothorax. DATA REPOSITORY: RADIATION DOSE DELIVERED:
--- NOTE | 2025-01-01 16:30 | DI.CT_ITS ---
Exam(s) CT HEAD CERVICAL SPINE WO EXAM: CT HEAD CERVICAL SPINE WO CLINICAL HISTORY: pain s/p fall last night. TECHNIQUE: Imaging Protocol: Axial computed tomography images with coronal and sagittal reformatted images were created and reviewed COMPARISON: CT CT HEAD WO from 08/09/2023 FINDINGS: BRAIN: There are no skull fractures nor fluid in the visualized paranasal sinuses. There is no evidence of intracranial hemorrhage, mass effect, or shift of midline structures. There are no extra-axial fluid collections. The ventricles are not enlarged or shifted and there is no blo od within the ventricular system nor within the basal cisterns. Mild bilateral periventricular hypodensity consistent with chronic small vessel disease. CERVICAL SPINE: There is no evidence of acute fracture nor listhesis. No significant prevertebral soft tissue swelli ng. There is multilevel moderate disc space narrowing in the mid-lower cervical spine. There is multilevel moderate facet arthropathy. There is no significant facet joint malalignment. No significant osseous lesions evident. IMPRESSION: No acute intracranial findings on this noninfused CT scan of the brain. No evidence of cervical spine fracture, malalignment, nor acute compromise of the cervical spinal can al. Report called by myself to ER physician 01/01/2025 at 5:26 p.m. RADIATION DOSE DELIVERED: 1,327mGy.cm Total DLP DATA REPOSITORY: All CT scans at this facility are submitted to the National Radiology Data Registry (NRDR) Dose Index Registry (DIR) with the [employer] ([employer]). RADIATION OPTIMIZATION: All CT scans at this facility use at least one of these dose optimization te chniques: automated exposure control; mA and/or kV adjustment per patient size (includes targeted exa ms where dose is matched to clinical indication); or iterative reconstruction.
--- NOTE | 2025-01-01 16:30 | DI.RAD_ITS ---
Exam(s) XR WRIST LT COMPLETE EXAM: XR WRIST LT COMPLETE CLINICAL HISTORY: pain s/p fall last night. TECHNIQUE: 2D digital imaging was performed. COMPARISON: No exams were available for comparison FINDINGS: 3 views No evidence of acute fracture nor carpal dislocation nor significant ulnar variance. Scaphoid and sc apholunate distance are normal. There are advanced degenerative changes in the 1st carpometacarpal j oint incidentally noted. IMPRESSION: No acute wrist fractures. Degenerative changes noted in the 1st carpometacarpal joint. DATA REPOSITORY: RADIATION DOSE DELIVERED:
--- NOTE | 2025-01-01 16:40 | ED.GENADUL_ITS ---
Discharge Plan Disposition Patient Disposition: Home Condition: Stable Discharge Details Clinical Impression: Blunt head trauma, Cervical strain, Left wrist sprain, Contusion of left knee, Contusion of rib on left side Primary Care Provider: Veronica Garcia ED Provider: Marco Perkins Home Meds and New Rx's Prescriptions: Continued ibuprofen-acetaminophen 125-250 mg tablet 2 tab PO Q8H PRN clobetasol 0.05 % cream 1 g topical BID PRN Patient Comments: APPLY TWICE DAILY TO RASH ON LEGS FOR UP TO 2 WEEKS PER MONTH NEEDED paroxetine HCl 10 mg tablet 10 mg PO DAILY Qty: 90 2RF cod liver oil 1 EACH capsule 1 ea PO DAILY ascorbic acid (vitamin C) [Vitamin C] 500 MG tablet 500 mg PO DAILY multivitamin 1 EACH capsule 1 ea PO BID vitamin B complex 1 EACH capsule 1 ea PO DAILY cholecalciferol (vitamin D3) [Vitamin D3] 2,000 UNIT capsule 2,000 unit PO DAILY Rofddryclvi-Qglka-LYB Complex 1 EACH tablet 1 ea PO TID milk thistle seed extract 175 MG capsule 175 mg PO DAILY Discharge Instructions Additional Instructions: Your CAT scan of your head and neck as well as your x-rays of your ribs, left wrist and left knee did not show any concerning findings at this time. Your blood pressure here was elevated but this could be due to being in pain. I would recommend following up with your doctor within 1 to 2 weeks for recheck of your blood pressure. If you feel more ill, have severe worsening pain or have new symptoms such as difficulty breathing return to the emergency department for reevaluation HPI General Date/Time Provider Initiated Documentation: 01/01/25 16:25 . Limitations to Documentation: no limitations . Information obtained by: patient . History of Present Illness 79 year old F presents to the emergency department with the chief complaint of left wrist, left knee and rib pain, described as moderate, Quality is described as aching, and is localized to the chest, left, upper extremity and lower extremity. Patient reports no radiation. Patient started experiencing this day(s) (1) and it has been constant. No relieving factors improve symptom(s), No exacerbating factors reported . Patient notes denies nausea/vomiting and shortness of breath. Patient did receive the following treatments prior to arrival, NSAID Related Data Home Medications ?Medication ?Instructions ?Recorded ?Confirmed ascorbic acid (vitamin C) 500 mg 500 mg PO DAILY 07/03/18 01/01/25 tablet (Vitamin C) cholecalciferol (vitamin D3) 50 2,000 unit PO DAILY 07/03/18 01/01/25 mcg (2,000 unit) capsule (Vitamin D3) cod liver oil 1 ea PO DAILY 07/03/18 01/01/25 glucosamine 375 kn-rtmlonjmd-qzb 1 ea PO TID 07/03/18 01/01/25 no1 500 mg-C 15 mg-jaci 0.5 mg tablet (Tjycvjwvajr-Xixsprlhznr-ITY Complex) milk thistle seed extract 175 mg 175 mg PO DAILY 07/03/18 01/01/25 capsule multivitamin 1 ea PO BID 07/03/18 01/01/25 vitamin B complex 1 ea PO DAILY 07/03/18 01/01/25 ibuprofen 125 mg-acetaminophen 250 2 tab PO Q8H PRN 11/17/22 01/01/25 mg tablet clobetasol 0.05 % topical cream 1 g topical BID PRN 06/15/23 01/01/25 paroxetine HCl 10 mg tablet 10 mg PO DAILY #90 tabs 09/03/24 01/01/25 Previous Rx's ?Medication ?Instructions ?Recorded paroxetine HCl 10 mg tablet 10 mg PO DAILY #90 tabs 09/03/24 Allergies Allergy/AdvReac Type Severity Reaction Status Date / Time latex Allergy Unknown red & itchy Verified 01/01/25 16:22 morphine AdvReac Intermediate Paranoia Verified 01/01/25 16:22 oxycodone (From Percocet) AdvReac Intermediate nausea/vomi Verified 01/01/25 16:22 tting Sulfa (Sulfonamide AdvReac Intermediate NAUSEA AND Verified 01/01/25 16:22 Antibiotics) VOMITING General Stated Complaint: Trauma EBONI: 3 Review of Systems All systems reviewed & are unremarkable except as noted in HPI and below Constitutional Constitutional: Denies chills, Denies fever(s) and Denies weakness Cardiovascular Cardiovascular: Reports chest pain (rib pain) and Denies dyspnea Respiratory Respiratory: Denies cough and Denies dyspnea Gastrointestinal Gastrointestinal: Denies abdominal pain, Denies nausea and Denies vomiting Neurologic Neurologic: Denies weakness Exam Const General: no acute distress Orientation: alert HENMT Head: normal to inspection Ears: external ears normal General nose exam: external nose normal Mouth: moist mucous membranes Eyes General: appearance normal, both eyes and all related structures Neck Neck: normal visual inspection and tender Chest Chest: tenderness Resp Effort & Inspection: normal respiratory effort and able to speak in complete sentences Auscultation: clear to auscultation bilaterally Cardio Jugular venous pressure: no JVD Rate: regular rate Heart Sounds: no murmurs GI Palpation: soft and nontender Skin General skin exam: no rashes or lesions noted Neuro General: patient alert and patient oriented x3 Extrem General: full ROM Psych Mental Status: mental status grossly normal Course Vital Signs Vital signs: Vital Signs Temperature 36.2 C L 01/01/25 16:17 Pulse 71 01/01/25 16:17 Respiratory Rate 18 01/01/25 16:17 Blood Pressure 192/96 H 01/01/25 16:17 Pulse Oximetry 97 01/01/25 16:17 Temperature 36.2 C L 01/01/25 16:17 Pulse 71 01/01/25 16:17 Respiratory Rate 18 01/01/25 16:17 Blood Pressure 192/96 H 01/01/25 16:17 Blood Pressure Position Sitting 01/01/25 16:17 Pulse Oximetry 97 01/01/25 16:17 Oxygen Delivery Method Room Air 01/01/25 16:17 Oxygen Flow Rate 0 01/01/25 16:17 Pain Level 10 01/01/25 16:17 Medical Decision Making 79-year-old female with a history of hyperlipidemia, osteoarthritis, comes in after a fall last night. She says she was carrying some items and did not see a cardboard box and was on the ground which caused her to trip falling forward from a standing height. She denies any preceding symptoms the fall and denies loss of conscious. She has had some discomfort in her left wrist, left anterior knee and left lateral ribs so came here for evaluation. She also notes some intermittent left-sided neck pain. Denies any severe headaches, abdominal pain, vomiting. She is well-appearing in no distress on exam. She has tenderness over the posterior left wrist without visible deformity and has full range of motion of the wrist. Intact sensation and pulses in the wrist. No tenderness elsewhere in the extremity. She has tenderness with some bruising over the left anterior knee, she does have full range of motion of the knee, intact distal sensation and pulses. Has reproducible tenderness over the 4th through 6th ribs in the anterior x-ray lines on the left. Clear lung sounds, no crepitus. She has reproducible tenderness in the left paraspinous muscle on the mid neck, no midline C-spine tenderness. Given her age and will obtain CT head and C-spine to evaluate for traumatic injuries. Also obtain x-rays of the ribs and left wrist and left knee and reassess. CT head and C-spine negative, left wrist x-ray negative, chest x-ray and rib series x-rays negative, left knee x-ray negative. Patient is stable and has no new pain elsewhere. She still has full range of motion of her wrist, knee and can fully range her neck without any midline tenderness. Given negative x-rays and no new pain elsewhere I feel she is stable for discharge and follow-up with her PCP. 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 (Acute) Foot pain (Acute) MCL sprain of right knee (Acute) Tear of lateral meniscus of right knee (Acute) Tear of medial meniscus of right knee (Acute) Generalized anxiety disorder (Chronic) Major depressive disorder, recurrent (Chronic) ADHD (Chronic) Hyperlipidemia (Chronic) Prediabetes (Chronic) Left rotator cuff tear (Chronic) Osteoporosis (Chronic) Osteoarthritis of lumbar spine (Chronic) Osteoarthritis of cervical spine (Chronic) Osteoarthritis of carpometacarpal (CMC) joint of left thumb (Chronic) Injected: 02/22/2021 Osteoarthritis of right knee (Chronic) Recurrent falls (Chronic) Urinary incontinence, mixed (Chronic) History of skin cancer (Chronic) SCC Peripheral neuropathy (Chronic) Gastroesophageal reflux disease (Chronic) Hypertrophic lichen planus (Chronic) Medical History Essential hypertension 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 Maternal Grandfather Parkinson disease Maternal Grandmother Diabetes Paternal Grandfather , 28 flu No problems noted. Paternal Grandmother No problems noted. Other Heart disease Social History (Updated 07/21/24 @ 09:15 by Parvin Ladd) Smoking/Tobacco Use Status: Never Smoking risk assessment performed?: Yes Alcohol Intake: current Alcohol Intake frequency: 0-2 drinks per day Alcohol type: hard liquor Counseling provided: provider counseling, reduce to 2 or less/day, support program, other and none Details: 1 hard liquor per day Drug use: Never Substance use type: does not use Caregiver/Support person: No Household members: none Housing: house Communication Needs: None Do you need help understanding health information?: Never current occupation: [employer] Pets and animals: Yes Pets and animals: dog(s) Sexually active: No Do you think of yourself as: straight/heterosexual Current gender identity: female What is your relationship status?: never How often do you talk on the phone with friends or family?: once per week How often do you get together with friends or relatives?: once per week How often do you attend roman catholic or rastafari services?: decline to answer Do you belong to any clubs or organized social groups?: no Panel score (0-1 are the most socially isolated patients): 0 What type of physical activity do you participate in: walking and other Details: Core excercising Duration: 45-60 minutes/day Frequency: daily Marhta/Christian: No preference Special martha needs: No Do you feel safe at home: Yes Do you feel safe in your relationship?: Yes
[2025-01-01] MEDS: Lidocaine 5% Patch 1 PATCH TP (17:29)
--- NOTE | 2025-01-01 17:35 | NUR.NOTE ---
Nursing Note: patient voiced she felt flushed and only ate a granola bar once time today BS [id number]
[2025-01-01 17:45] VITALS: BP 189/95; PULSE 75; RESP 16; O2SAT 95
== END 2025-01-01 17:59 | disposition home or self-care (01) ==
PROVIDERS: Emergency Provider Emergency Medicine; PCP Nurse Practitioner Family
DX: S09.8XXA Other specified injuries of head, initial encounter (principal); S16.1XXA Strain of muscle, fascia and tendon at neck level, initial encounter; S63.502A Unspecified sprain of left wrist, initial encounter; S80.02XA Contusion of left knee, initial encounter; S20.212A Contusion of left front wall of thorax, initial encounter; E78.5 Hyperlipidemia, unspecified; W01.0XXA Fall on same level from slipping, tripping and stumbling without subsequent striking against object, initial encounter; Y93.01 Activity, walking, marching and hiking; Y92.89 Other specified places as the place of occurrence of the external cause
CPT/HCPCS: 73562; 82962; 99284; 70450; 71046; 71100; 72125; 73110

== ENCOUNTER → 2025-07-16 11:34 | Outpatient (BNVA) | payer MEDICARE, SELFPAY | PROVIDERS: PCP Nurse Practitioner Family; Referring Provider Nurse Practitioner Family; Visit Provider Podiatrist | DX: M19.071 Primary osteoarthritis, right ankle and foot (principal); Q66.71 Congenital pes cavus, right foot; Q66.72 Congenital pes cavus, left foot; M79.671 Pain in right foot | CPT/HCPCS: 20600; J0702; J1100 ==

== ENCOUNTER → 2025-08-12 11:41 | Outpatient (BNVA) | payer MEDICARE, SELFPAY | PROVIDERS: PCP Nurse Practitioner Family; Referring Provider Nurse Practitioner Family; Visit Provider Podiatrist | DX: M19.071 Primary osteoarthritis, right ankle and foot (principal); M21.611 Bunion of right foot; M20.21 Hallux rigidus, right foot; M20.41 Other hammer toe(s) (acquired), right foot; M20.42 Other hammer toe(s) (acquired), left foot; M79.671 Pain in right foot; M79.672 Pain in left foot | CPT/HCPCS: 20600; J0702; J1100 ==

== ENCOUNTER → 2025-09-16 10:53 | Outpatient (BNVA) | payer MEDICARE, SELFPAY | PROVIDERS: PCP Nurse Practitioner Family; Referring Provider Nurse Practitioner Family; Visit Provider Podiatrist | DX: M19.071 Primary osteoarthritis, right ankle and foot (principal); M21.611 Bunion of right foot; M20.21 Hallux rigidus, right foot; M20.41 Other hammer toe(s) (acquired), right foot; M20.42 Other hammer toe(s) (acquired), left foot; G62.9 Polyneuropathy, unspecified; M21.6X1 Other acquired deformities of right foot; M21.6X2 Other acquired deformities of left foot | CPT/HCPCS: 20600; J0702; J1100 ==

== ENCOUNTER 2025-09-25 12:33 | Outpatient (REF) | payer MEDICARE, SELFPAY ==
[2025-09-26 11:57] LABS: Campylobacter PCR Negative (Negative); Shiga Toxin PCR Negative (Negative); Shigella/Enteroinvasive Ecoli Negative (Negative)
== END 2025-09-25 12:34 | disposition home or self-care (01) ==
LOC: LBN 12:33
PROVIDERS: PCP Nurse Practitioner Family; Visit Provider Physician Assistant
DX: R19.7 Diarrhea, unspecified (principal)
CPT/HCPCS: 87015; 87269; 87272; 87505